=== PATIENT | male | born 1950 | race Hispanic/Latino ===

== ENCOUNTER 2016-09-22 07:31 | Inpatient (IN) | payer MEDICARE ==
[2016-09-18 15:23] VITALS: BMI 29.5
[2016-09-22] MEDS ORDERED: ePHEDrine 50 mg/ml Inj ONE (07:46)
[2016-09-22] MEDS ORDERED: Rocuronium 10 mg/ml (5 ml) ONE ×2 (07:46→09:53)
[2016-09-22] MEDS ORDERED: Succinylcholine 200 mg/10 ml Inj IV ONE (07:46)
[2016-09-22] MEDS ORDERED: Midazolam 2 MG/2 ML VIAL ONE (07:46)
[2016-09-22] MEDS ORDERED: Propofol 10 mg/ml Inj (20 ML) ONE (07:46)
[2016-09-22] MEDS ORDERED: Morphine 1 mg/ml preservative-free Inj(Duramorph) ONE (08:23)
[2016-09-22] MEDS ORDERED: Sodium Chloride 0.9% 20 ML IV ONE (08:23)
[2016-09-22 08:25] LABS: BLOOD UREA NITROGEN 26 mg/dl (9-20); CALCIUM 8.7 mg/dL (8.4-10.2); CARBON DIOXIDE 28 mmol/L (22-30); CHLORIDE 103 mmol/L (98-107); GFR AFRICAN-AMERICAN > 60; GLUCOSE,RANDOM 94 mg/dL (75-110); POTASSIUM 3.9 MMOL/L (3.6-5.0); SODIUM 141 mmol/l (132-148)
[2016-09-22] MEDS ORDERED: Thrombin Topical 5,000 IU Spray Kit ONE (08:25)
[2016-09-22] MEDS ORDERED: Absorbable Gelatin Sponge Size 100 ONE (08:25)
[2016-09-22] MEDS ORDERED: Bupivacaine 0.5% Inj(30mL) ONE (08:25)
[2016-09-22] MEDS ORDERED: Lactated Ringer's 1,000 ML IV ONE ×2 (09:14→11:00)
[2016-09-22] MEDS ORDERED: Sodium Chloride 0.9% Inj (10mL) IV ONE (11:03)
[2016-09-22] MEDS ORDERED: EPINEPHrine 1 mg/ml (1:1000) Inj IM ONE ×2 (11:07)
[2016-09-22] MEDS ORDERED: Neostigmine Methylsulfate 3mg/3ml Syringe IV ONE (11:13)
[2016-09-22] MEDS ORDERED: HYDROmorphone 0.5 mg/0.5 ml ISec IVP PRN (12:01)
--- NOTE | 2016-09-22 12:22 | PCM.SURG1 ---
Surgeon's Initial Post Op Note - Surgeon's Notes Surgeon: Abner Hernadez MD [place] Operator: Hakan Holbrook PA-C ; Charly Mullen MD Type of Anesthesia: General Endo Pre-Operative Diagnosis: Right Knee Severe OA Operative Findings: See op report Post-Operative Diagnosis: Same as pre-op dx Operation Performed: RTKR Specimen/Specimens Removed: Right knee bone and soft tissue Estimated Blood Loss: EBL {In ML}: 100 Date of Surgery/Procedure: 09/22/16 Time of Surgery/Procedure: 09:30
--- NOTE | 2016-09-22 12:24 | OP ---
PROCEDURE DATE: 09/22/2016 PROCEDURE DATE: 09/22/2016 ATTENDING SURGEON: Abner Hernadez MD TRANSPORTATION ENGINEER: Hakan Holbrook PA-C PREOPERATIVE DIAGNOSIS: Right knee osteoarthritis. POSTOPERATIVE DIAGNOSIS: Right knee osteoarthritis. PROCEDURE: Right total knee replacement. IMPLANTS SIZE: [employer] size 5 femur, size 5 tibial baseplate, 13 mm polyethylene insert, and a 38 m m polyethylene. ANESTHESIA TYPE: General. ESTIMATED BLOOD LOSS: 50 mL. COMPLICATIONS: None. HISTORY: The patient with prolonged history of right knee pain progressively getting worse despite e xtensive conservative management, which included activity modification, injections, anti-inflammatory modification and physical therapy. X-rays had revealed advanced arthritis. Patient was indicated fo r total knee replacement due to continued pain and limited mobility. I had a detailed discussion with the patient in the office explaining the nature of the surgery, alternatives of surgery, risks and b enefits, rehabilitation protocol and surgical markings. Risks of surgery include but not limited to continued pain, lack of motion, infection, vascular injury, DVT/PE, nerve injury including peroneal n erve dysfunction, reflex sympathetic dystrophy, compartment syndrome, unforeseen medical and/or anest hesia complications, limb loss, and even . The patient expressed an understanding of the risks and possible benefits of the procedure, and is also aware of the alternatives to surgery. PROCEDURE: On the day of the surgery, the patient was admitted to pre-operative holding area. A lat erality sheet was completed confirming the correct operative site. The correct surgical knee was mar ked in the holding area and informed consent was signed from the patient. Once again, I reviewed the risks and benefits of the surgery with the patient in detail. These risks include but are not limit ed to continued pain, lack of motion, infection, vascular injury, DVT/PE, nerve injury including anshul zachery nerve dysfunction, reflex sympathetic dystrophy, symptomatic hardware, need for further procedur e and surgeries, instability, iatrogenic fractures, compartment syndrome, unforeseen medical and/or a nesthesia complications, limb loss, and even . The patient expressed an understanding of the ri sks and possible benefits of the procedure, also aware of the alternatives to surgery and signed the informed consent. The patient was transported to the operating room and placed in the supine position, general anesthes ia was obtained Exam Under Anesthesia revealed 5 degrees of varus alignment. No effusion. Range of motion is from 0 to 120. A padded tourniquet was applied to patient's operative thigh and appropriate prophylactic antibiotics were given. The operative leg was draped and prepped in standard sterile manner. Timeout was compl eted, confirming patient's right knee to be the correct operative site. Using an Esmarch, the extrem ity was exsanguinated and tourniquet was inflated to 350 mmHg. The surgical incision markings were m haim using patella border, tibial tubercle, patella and quadriceps tendon. Using a 10 blade, a midlin e incision was made. Skin dissection was taken until the prepatellar fascia was identified and the c orners of the patellar tendon were marked for proper closure at the end of the procedure. Using a fr esh 10 blade, a medial parapatellar arthrotomy was performed. The knee was exposed in the standard m lulu. The deep MCL was elevated for exposure, medial and lateral menisci were removed, ACL and PCL were also transected. The tibia was subluxed anteriorly. Planned tibial cut was made with power saw, using extra-medullary guide, perpendicular to mechanical axis of the tibia. After the cut was made, the alignment was also checked and was found to be appropr iate. Next, the knee was placed into 90 degrees of flexion. A drill hole was made within the femora l notch anterior to PCL insertion for placement of intramedullary femoral chip. Intramedullary femora l chip was inserted within the femoral canal and planned distal femoral cut was made. After the cut, k nee was brought into full extension. Spacer blocks were used to check the extension balancing both in full extension and 30 degrees of flexion. It was found that a size 13 mm trial spacer block allowed full extension with symmetric varus and valgus balancing. Next we proceed with Patella resurfacing. Patella width was found to 23 mm. Using the free-hand techn ique the arthritic patella surface was resected. Patella was sized using the guide and it was noted t hat 38 mm Patella dome button would be appropriate for the patient. Next the size of femoral component was determined using the posterior referencing guide. It was note d that a size 5 femur would be appropriate for this patient without causing any significant notching. A 4 x 1 cutting block was placed and flexion gap balancing was checked. The flexion gap was found t o be symmetric to the extension gap. Anterior and posterior condyle, anterior and posterior chamfer c uts were made. Next, appropriate size box cut for femoral component was prepared using the guide. The femoral trial component was impacted onto the distal femur. Appropriate size tibial trial compone nt was also placed on the cut surface of the tibia. Using the drill and punch, keel for tibial implan t was prepared. Trial tibial tray was secured onto the tibia using pins. Different size trial polyeth ylene inserts were secured on to the trial tibial tray to critically assess the following parameters: Full range of motion, extension and flexion gap balancing, mid-flexion stability, anterior and poste rior drawer, and patellar tracking. All parameter were found to be satisfactory with 13 mm insert. All the trial components were removed. Implants were opened on the back table. Cement was mixed and w e proceed with cement fixation of the implants. Tibial tray, femoral component and patellar dome butt on were secured with cement. Polyethylene insert was secured onto the tibial tray using locking mecha nism. The knee was reduced and brought into full extension. Cement was allowed to harden until final component fixation. Knee was taken through the final range of motion for stability testing, and foun d to be satisfactory. 60 mL of custom cocktail mixture was injected into posterior capsule, MCL, LCL, quadriceps tendon, an d patellar tendon. Wound was copiously irrigated with sterile antibiotic solution using pulse lavage. Arthrotomy was closed using heavy suture and wound was closed in standard manner. Patient was extuba albina, transferred to stretcher and taken to the recovery room. Postoperative instructions were provide d, physical therapy consult was requested along with DVT prophylaxis and appropriate pain medications . During this procedure, I was assisted by Hakan Holbrook PA-C, who assisted in positioning the patien t on the operating room table as well as transferring the patient from the operating room table to [facility] recovery room stretcher. In addition, Hakan Holbrook PA-C assisted me during the actual operative procedure by positioning, protecting critical neurovascular structures, exposure of the joint, and p yareli positioning of the implants. The presence of Hakan Holbrook PA-C as my operative graduate assistant was medically necessary to ensure the utmost safety of the patient in the pre, intra-, and postoperative periods. Abner Hernaedz MD cc: [id number] TT: 09/22/2016 12:23:45 sn
[2016-09-22] MEDS ORDERED: Oxycodone/Acetaminophen 5/325 mg Tab PO PRN (12:28)
--- NOTE | 2016-09-22 13:32 | RAD ---
PROCEDURE: Right Knee Radiographs. HISTORY: S/P RTKR COMPARISON: 09/11/2016 FINDINGS: BONES: Status post total knee replacement. No osseous fracture. Postoperative soft tissue changes. JOINTS: As above JOINT EFFUSION: None. OTHER FINDINGS: None. IMPRESSION: Right total knee replacement. Otherwise unremarkable.
[2016-09-22] MEDS ORDERED: ceFAZolin 1 GM in Sodium Chloride 0.9% 100 ML IVPB ONE (17:30)
[2016-09-22] MEDS: oxyCODONE 20 mg ER Tab (oxyCONTIN) PO SCH (22:44)
[2016-09-23] MEDS ORDERED: ceFAZolin 1 GM in Sodium Chloride 0.9% 100 ML IVPB ONE (01:00)
[2016-09-23 07:07] LABS: BASO % 0.4 % (0.0-2.0); EOS # 0.2 K/uL (0.0-0.7); EOS % 1.9 % (0.0-4.0); HEMATOCRIT 37.2 % (35.0-51.0); LYMPH # 1.2 K/uL (1.0-4.3); LYMPH % 10.5 % (20.0-40.0); MEAN CELL VOLUME 86.3 fl (80.0-94.0); MEAN CORPUSCULAR HEMOGLOBIN 28.2 pg (27.0-31.0); MEAN CORPUSCULAR HGB CONC 32.6 g/dL (33.0-37.0); MEAN PLATELET VOLUME 10.7 fl (7.2-11.7); MONO # 1.2 K/uL (0.0-0.8); MONO % 10.1 % (0.0-10.0); NEUT # 8.8 K/uL (1.8-7.0); NEUT % 77.1 % (50.0-75.0); RED CELL DISTRIBUTION WIDTH 16.2 % (11.5-14.5); WHITE BLOOD COUNT 11.4 K/uL (4.8-10.8)
[2016-09-23 07:20] LABS: BLOOD UREA NITROGEN 18 mg/dl (9-20); CALCIUM 8.2 mg/dL (8.4-10.2); CARBON DIOXIDE 29 mmol/L (22-30); CHLORIDE 102 mmol/L (98-107); GFR AFRICAN-AMERICAN > 60; GLUCOSE,RANDOM 111 mg/dL (75-110); POTASSIUM 4.3 MMOL/L (3.6-5.0); SODIUM 138 mmol/l (132-148)
--- NOTE | 2016-09-23 08:49 | CP.PCM.PN ---
Subjective - Date & Time of Evaluation Date of Evaluation: 09/23/16 Time of Evaluation: 08:15 - Subjective Subjective: S/P RTKR POD#1 Pt seen and examined at bedside, comfortable in bed Pt c/o mild right knee pain Pt denies SOB, chest pain, N/V/D, numbness/tingling RLE Objective - Vital Signs/Intake and Output Vital Signs (last 24 hours): Temp Pulse Resp BP Pulse Ox 98.1 F 65 18 107/64 94 L 09/23/16 08:05 09/23/16 08:05 09/23/16 08:05 09/23/16 08:05 09/23/16 08:05 - Medications Medications: Current Medications Aspirin (Aspirin) 325 mg PO BID [facility] Celecoxib (Celebrex) 200 mg PO Q12 [facility] Last Admin: 09/22/16 22:46 Dose: 200 mg Docusate Sodium (Colace) 100 mg PO BID [facility] Last Admin: 09/22/16 18:17 Dose: 100 mg Famotidine (Pepcid) 20 mg PO BID [facility] Last Admin: 09/22/16 18:18 Dose: 20 mg Ketorolac Tromethamine (Toradol) 15 mg IM Q8 [facility] Stop: 09/24/16 17:00 Last Admin: 09/23/16 00:27 Dose: Not Given Ondansetron HCl (Zofran Odt) 4 mg PO Q8H PRN PRN Reason: Nausea/Vomiting Oxycodone HCl (Oxycontin Extended Release Tab) 20 mg PO Q12 [facility] Last Admin: 09/22/16 22:44 Dose: 20 mg Oxycodone/Acetaminophen (Percocet 5/325 Mg Tab) 1 tab PO Q4 PRN PRN Reason: Pain, moderate (4-7) Stop: 09/25/16 12:29 - Labs Labs: 09/23/16 05:20 09/23/16 06:53 - Constitutional Appears: Well, No Acute Distress - Respiratory Exam Respiratory Exam: Clear to Ausculation Bilateral, NORMAL BREATHING PATTERN - Cardiovascular Exam Cardiovascular Exam: REGULAR RHYTHM, RRR - Extremities Exam Additional comments: RLE: Knee dressing C/D/I Calves soft and nontender b/l N/V intact Normal ROm at ankle DP and PT pulses wnl Assessment and Plan - Assessment and Plan (Free Text) Assessment: S/P RTKR POD #1 Pain Control DVT ppx- aspirin 325mg bid SCD to b/l LE Incentive Spirometer F/U daily labs PT/OT WBAt RLE Discussed with Dr. Hernadez
[2016-09-23] MEDS: oxyCODONE 20 mg ER Tab (oxyCONTIN) PO SCH ×2 (09:04→21:57)
[2016-09-23] MEDS ORDERED: Tiotropium 18 mcg Cap For Inhalation IH SCH (09:15)
--- NOTE | 2016-09-23 11:11 | CP.PCM.HP ---
History of Present Illness - History of Present Illness History of Present Illness: 65yo M with PMHx BPH, COPD admitted for s/p right TKR. right TKR performed with no complications. Pain well controlled. no complaints at this time. PMHx: as above SHx: knee arthroscopies Social hx: 4ppd x10 year, denies EtOH/drugs Allergies: NKDA FHx: NC Present on Admission - Present on Admission Any Indicators Present on Admission: No Review of Systems - Constitutional Constitutional: absent: Chills, Fever - Cardiovascular Cardiovascular: absent: Chest Pain - Respiratory Respiratory: absent: Dyspnea - Gastrointestinal Gastrointestinal: absent: Abdominal Pain, Diarrhea, Nausea, Vomiting - Genitourinary Genitourinary: absent: Dysuria, Hematuria - Musculoskeletal Musculoskeletal: Stiffness (right knee). absent: Back Pain - Neurological Neurological: absent: Headaches Past Patient History - Past Medical History & Family History Past Medical History?: Yes - Past Social History Smoking Status: Never Smoked - CARDIAC Hx Cardiac Disorders: No - PULMONARY Hx Respiratory Disorders: Yes Hx Asthma: Yes ( CHILD) Hx Chronic Obstructive Pulmonary Disease (COPD): Yes - NEUROLOGICAL Hx Neurological Disorder: No - HEENT Hx HEENT Problems: No - RENAL Hx Chronic Kidney Disease: No - ENDOCRINE/METABOLIC Hx Endocrine Disorders: No - HEMATOLOGICAL/ONCOLOGICAL Hx Blood Disorders: No - INTEGUMENTARY Hx Dermatological Problems: No - MUSCULOSKELETAL/RHEUMATOLOGICAL Hx Musculoskeletal Disorders: Yes Hx Arthritis: Yes (KNEES AND LEGS) Hx Falls: No - GASTROINTESTINAL Hx Gastrointestinal Disorders: No Other/Comment: HEARTBURN - GENITOURINARY/GYNECOLOGICAL Hx Genitourinary Disorders: Yes Hx Prostate Problems: Yes - PSYCHIATRIC Hx Emotional Abuse: No Hx Physical Abuse: No - SURGICAL HISTORY Hx Surgeries: Yes Hx Arthroscopy: Yes (LEFT KNEE) - ANESTHESIA Hx Anesthesia: Yes Hx Anesthesia Reactions: No Hx Malignant Hyperthermia: No Has any member of the family had a problem w/ anesthesia?: No Meds Allergies/Adverse Reactions: Allergies Allergy/AdvReac Type Severity Reaction Status Date / Time No Known Allergies Allergy Verified 09/18/16 15:23 Physical Exam - Constitutional Appears: Non-toxic, No Acute Distress - Head Exam Head Exam: NORMAL INSPECTION - Eye Exam Eye Exam: Normal appearance - ENT Exam ENT Exam: Mucous Membranes Moist - Neck Exam Neck exam: Positive for: Normal Inspection - Respiratory Exam Respiratory Exam: Clear to Auscultation Bilateral - Cardiovascular Exam Cardiovascular Exam: REGULAR RHYTHM - GI/Abdominal Exam GI & Abdominal Exam: Soft - Extremities Exam Extremities exam: Positive for: normal inspection. Negative for: pedal edema Additional comments: sensation/motor grossly intact right lower extremity right knee asmita wrapped - Neurological Exam Neurological exam: Alert, Oriented x3 - Skin Skin Exam: Dry, Warm Results - Vital Signs Recent Vital Signs: Last Vital Signs Temp 98.1 F 09/23/16 08:05 Pulse 65 09/23/16 08:05 Resp 18 09/23/16 08:05 BP 107/64 09/23/16 08:05 Pulse Ox 94 L 09/23/16 08:05 - Labs Result Diagrams: 09/23/16 05:20 09/23/16 06:53 Labs: Laboratory Results - last 24 hr 09/23/16 09/23/16 05:20 06:53 WBC 11.4 H RBC 4.31 L Hgb 12.1 Hct 37.2 MCV 86.3 MCH 28.2 MCHC 32.6 L RDW 16.2 H Plt Count 121 L MPV 10.7 Neut % (Auto) 77.1 H Lymph % (Auto) 10.5 L [place] % (Auto) 10.1 H Eos % (Auto) 1.9 Baso % (Auto) 0.4 Neut # 8.8 H Lymph # 1.2 [place] # 1.2 H Eos # 0.2 Baso # 0.0 Sodium 138 Potassium 4.3 Chloride 102 Carbon Dioxide 29 Anion Gap 12 BUN 18 Creatinine 0.8 Est GFR ( Amer) > 60 Est GFR (Non-Af Amer) > 60 Random Glucose 111 H Calcium 8.2 L Assessment & Plan - Assessment and Plan (Free Text) Assessment: 65yo M with PMHx BPH, COPD admitted for s/p right TKR. POD#1 s/p RTKR -ortho on board, appreciate input -WBAT, OOB -incentive spiromety -pain control BPH -c/w home meds COPD -c/w home meds DVT ppx -ASA Decision To Admit - Pt Status Changed To: Hospital Disposition Of: Inpatient - Admit Certification Admit to Inpatient:: After my assessment, the patient will require hospitalization for at least two midnights. This is because of the severity of symptoms shown, intensity of services needed, and/or the medical risk in this patient being treated as an outpatient. - . Bed Request Type: Med/Surg Admitting Physician: Cesar Tam
[2016-09-23] MEDS: Fluticasone-Salmeterol 500-50mcg Diskus IH SCH ×2 (17:00→20:53)
[2016-09-23] MEDS: Tiotropium 18 mcg Cap For Inhalation INH SCH (17:04)
[2016-09-24 07:14] LABS: BASO % 0.2 % (0.0-2.0); EOS # 0.4 K/uL (0.0-0.7); EOS % 3.5 % (0.0-4.0); HEMATOCRIT 35.8 % (35.0-51.0); LYMPH # 1.1 K/uL (1.0-4.3); LYMPH % 9.3 % (20.0-40.0); MEAN CELL VOLUME 85.7 fl (80.0-94.0); MEAN CORPUSCULAR HEMOGLOBIN 28.5 pg (27.0-31.0); MEAN CORPUSCULAR HGB CONC 33.3 g/dL (33.0-37.0); MONO # 1.2 K/uL (0.0-0.8); MONO % 9.9 % (0.0-10.0); NEUT # 9.2 K/uL (1.8-7.0); NEUT % 77.1 % (50.0-75.0); PLATELET COUNT 114 K/uL (130-400); RED CELL DISTRIBUTION WIDTH 16.1 % (11.5-14.5); WHITE BLOOD COUNT 11.9 K/uL (4.8-10.8)
[2016-09-24 07:34] LABS: BLOOD UREA NITROGEN 18 mg/dl (9-20); CALCIUM 8.6 mg/dL (8.4-10.2); CARBON DIOXIDE 29 mmol/L (22-30); CHLORIDE 102 mmol/L (98-107); GFR AFRICAN-AMERICAN > 60; GLUCOSE,RANDOM 122 mg/dL (75-110); POTASSIUM 4.1 MMOL/L (3.6-5.0); SODIUM 140 mmol/l (132-148)
[2016-09-24] MEDS: Fluticasone-Salmeterol 500-50mcg Diskus IH SCH (09:46)
[2016-09-24] MEDS: oxyCODONE 20 mg ER Tab (oxyCONTIN) PO SCH (09:47)
[2016-09-24 09:49] LABS: EOSINOPHIL 1 % (0-7); NEUTROPHIL 75 % (42-75); REACTIVE LYMPHOCYTES 1 % (0-0); TOTAL CELLS COUNTED 100
[2016-09-24] MEDS: Tiotropium 18 mcg Cap For Inhalation INH SCH (09:49)
[2016-09-24 09:54] LABS: LARGE PLATELETS PRESENT
--- NOTE | 2016-09-24 11:45 | CP.PCM.PN ---
Subjective - Date & Time of Evaluation Date of Evaluation: 09/24/16 Time of Evaluation: 10:40 - Subjective Subjective: 65 year old male patient 2 days s/p right total knee replacement was seen at bedside this morning. Patient was resting well in bedside chair and denies of acute overnight distress. Dressing to right knee appears clean, dry and intact. Patient states that he is able to ambulate with tolerable amount of pain, being assisted by physical therapist. Patient denies of any N/V/F/C or SOB today. Objective - Vital Signs/Intake and Output Vital Signs (last 24 hours): Temp Pulse Resp BP Pulse Ox 97.8 F 63 18 119/77 92 L 09/24/16 08:47 09/24/16 08:47 09/24/16 08:47 09/24/16 08:47 09/24/16 08:47 - Medications Medications: Current Medications Aspirin (Aspirin) 325 mg PO BID [facility] Last Admin: 09/24/16 09:55 Dose: 325 mg Celecoxib (Celebrex) 200 mg PO Q12 [facility] Last Admin: 09/24/16 09:47 Dose: 200 mg Docusate Sodium (Colace) 100 mg PO BID [facility] Last Admin: 09/24/16 09:48 Dose: 100 mg Famotidine (Pepcid) 20 mg PO BID [facility] Last Admin: 09/24/16 09:55 Dose: 20 mg Finasteride (Proscar) 5 mg PO QPM [facility] Last Admin: 09/23/16 17:04 Dose: 5 mg Ketorolac Tromethamine (Toradol) 15 mg IVP Q8 PRN PRN Reason: Pain, moderate (4-7) Stop: 09/24/16 17:00 Ondansetron HCl (Zofran Odt) 4 mg PO Q8H PRN PRN Reason: Nausea/Vomiting Oxycodone HCl (Oxycontin Extended Release Tab) 20 mg PO Q12 [facility] Last Admin: 09/24/16 09:47 Dose: 20 mg Oxycodone/Acetaminophen (Percocet 5/325 Mg Tab) 1 tab PO Q4 PRN PRN Reason: Pain, moderate (4-7) Stop: 09/25/16 12:29 Last Admin: 09/23/16 14:22 Dose: 1 tab Fluticasone/Salmeterol (Advair Diskus 500/50) 2 puff IH BID@0900,2100 [facility] Last Admin: 09/24/16 09:46 Dose: 2 puff Tamsulosin HCl (Flomax) 0.4 mg PO QPM [facility] Last Admin: 09/23/16 18:19 Dose: 0.4 mg Tiotropium [place] (Spiriva) 18 mcg INH DAILY [facility] Last Admin: 09/24/16 09:49 Dose: 18 mcg - Labs Labs: 09/24/16 06:50 09/24/16 06:50 - Constitutional Appears: Well, Non-toxic, No Acute Distress - Extremities Exam Additional comments: RLE exam: Knee dressing C/D/I Calves soft and nontender b/l N/V intact Normal ROM at ankle DP and PT pulses palpable 2/4, BROOMMAKER <3 sec to all digits - Neurological Exam Neurological Exam: Alert, Awake, Oriented x3 - Psychiatric Exam Psychiatric exam: Normal Affect, Normal Mood - Skin Skin Exam: Normal Color, Warm Assessment and Plan - Assessment and Plan (Free Text) Assessment: S/P RTKR POD #2 Plan: Patient was seen, evaluated at bedside this AM Labs and vitals reviewed Continue physical therapy Weight bearing as tolerated to right lower extremity with walker DVT ppx- aspirin 325mg bid SCD to b/l LE Incentive Spirometer Discussed with Dr. Hernadez
--- NOTE | 2016-09-24 12:01 | CP.PCM.DIS ---
Provider - Provider Date of Admission: 09/22/16 12:46 Attending physician: Cesar Tam MD Primary care physician: Scout Burger MD Time Spent in preparation of Discharge (in minutes): 20 Diagnosis - Discharge Diagnosis (1) Status post right knee replacement Status: Acute Hospital Course - Lab Results Lab Results: Most Recent Lab Values WBC 11.9 K/uL (4.8-10.8) H 09/24/16 06:50 RBC 4.18 Mil/uL (4.40-5.90) L 09/24/16 06:50 Hgb 11.9 g/dL (12.0-18.0) L 09/24/16 06:50 Hct 35.8 % (35.0-51.0) 09/24/16 06:50 MCV 85.7 fl (80.0-94.0) 09/24/16 06:50 MCH 28.5 pg (27.0-31.0) 09/24/16 06:50 MCHC 33.3 g/dL (33.0-37.0) 09/24/16 06:50 RDW 16.1 % (11.5-14.5) H 09/24/16 06:50 Plt Count 114 K/uL (130-400) L 09/24/16 06:50 MPV 10.0 fl (7.2-11.7) 09/24/16 06:50 Neut % (Auto) 77.1 % (50.0-75.0) H 09/24/16 06:50 Lymph % (Auto) 9.3 % (20.0-40.0) L 09/24/16 06:50 [place] % (Auto) 9.9 % (0.0-10.0) 09/24/16 06:50 Eos % (Auto) 3.5 % (0.0-4.0) 09/24/16 06:50 Baso % (Auto) 0.2 % (0.0-2.0) 09/24/16 06:50 Neut # 9.2 K/uL (1.8-7.0) H 09/24/16 06:50 Lymph # 1.1 K/uL (1.0-4.3) 09/24/16 06:50 [place] # 1.2 K/uL (0.0-0.8) H 09/24/16 06:50 Eos # 0.4 K/uL (0.0-0.7) 09/24/16 06:50 Baso # 0.0 K/uL (0.0-0.2) 09/24/16 06:50 Neutrophils % (Manual) 75 % (42-75) 09/24/16 06:50 Band Neutrophils % 2 % (0-2) 09/24/16 06:50 Lymphocytes % (Manual) 10 % (20-50) L 09/24/16 06:50 Reactive Lymphs % 1 % (0-0) H 09/24/16 06:50 Monocytes % (Manual) 11 % (0-10) H 09/24/16 06:50 Eosinophils % (Manual) 1 % (0-7) 09/24/16 06:50 Platelet Estimate Slightly decreased (NORMAL) L 09/24/16 06:50 Large Platelets Present 09/24/16 06:50 Poikilocytosis (manual Slight 09/24/16 06:50 Anisocytosis (manual) Slight 09/24/16 06:50 Tear Drop Cells Slight 09/24/16 06:50 Sodium 140 mmol/l (132-148) 09/24/16 06:50 Potassium 4.1 MMOL/L (3.6-5.0) 09/24/16 06:50 Chloride 102 mmol/L (98-107) 09/24/16 06:50 Carbon Dioxide 29 mmol/L (22-30) 09/24/16 06:50 Anion Gap 14 (10-20) 09/24/16 06:50 BUN 18 mg/dl (9-20) 09/24/16 06:50 Creatinine 0.9 mg/dL (0.8-1.5) 09/24/16 06:50 Est GFR ( Amer) > 60 09/24/16 06:50 Est GFR (Non-Af Amer) > 60 09/24/16 06:50 Random Glucose 122 mg/dL (75-110) H 09/24/16 06:50 Calcium 8.6 mg/dL (8.4-10.2) 09/24/16 06:50 Blood Type O NEGATIVE 09/22/16 07:45 Blood Type Confirm O NEGATIVE 09/22/16 08:11 Antibody Screen Negative 09/22/16 07:45 BBK History Checked No verified bt 09/22/16 07:45 - Hospital Course Hospital Course: 65yo M with PMHx BPH, COPD admitted for s/p right TKR. right TKR performed with no complications. Pain well controlled. Pt able to tolerate PO and walking WBAT and full ROM. d/c POD#2 s/p right TKR to TCU for continued rehab. Discharge Exam - Head Exam Head Exam: NORMAL INSPECTION - Eye Exam Eye Exam: Normal appearance - ENT Exam ENT Exam: Mucous Membranes Moist - Neck Exam Neck exam: Normal Inspection - Respiratory Exam Respiratory Exam: NORMAL BREATHING PATTERN - Cardiovascular Exam Cardiovascular Exam: REGULAR RHYTHM - GI/Abdominal Exam GI & Abdominal Exam: Soft - Extremities Exam Extremities exam: full ROM, pedal edema (trace), pedal pulses present Additional comments: right knee dressing C/I - Back Exam Back exam: NORMAL INSPECTION - Neurological Exam Neurological exam: Alert, Oriented x3 - Skin Skin Exam: Dry, Warm Discharge Plan - Follow Up Plan Condition: GOOD Disposition: REHAB FACILITY/REHAB UNIT Instructions: Knee Replacement (DC) Referrals: Scout Burger [Primary Care Provider] -
[2016-09-24 16:14] VITALS: BP 130/72; PULSE 66; RESP 20; TEMP 98.4; O2SAT 96
== END 2016-09-24 18:30 | DRG 470 ==
LOC: H.OPSURG 07:31 → H.MEDSURG1 12:46
PROVIDERS: ADMIT Family Medicine; ATTEND Family Medicine
PROC: 0SRC0J9 Replacement of Right Knee Joint with Synthetic Substitute, Cemented, Open Approach (ICD-10-PCS; principal; 2016-09-22 10:30)
DX: M17.11 Unilateral primary osteoarthritis, right knee (principal); J44.9 Chronic obstructive pulmonary disease, unspecified; N40.0 Benign prostatic hyperplasia without lower urinary tract symptoms

== ENCOUNTER 2016-09-24 15:00 | Inpatient (IN) | payer MEDICARE ==
[2016-09-24 18:24] VITALS: BMI 32.3
[2016-09-24] MEDS: oxyCODONE 20 mg ER Tab (oxyCONTIN) PO SCH (21:43)
[2016-09-24] MEDS: Oxycodone/Acetaminophen 5/325 mg Tab PO PRN (23:06)
[2016-09-25] MEDS: Oxycodone/Acetaminophen 5/325 mg Tab PO PRN ×2 (07:18→17:40)
--- NOTE | 2016-09-25 08:45 | CP.PCM.PN ---
Subjective - Date & Time of Evaluation Date of Evaluation: 09/25/16 Time of Evaluation: 08:40 - Subjective Subjective: S/P RTKR POD#3 Pt seen amd examined at bedside in TCU, pt comfortable, NAD Pt c/o mild Rt knee pain, currently well controlled Pt denies SOB, chest pain, N/V/D, numbness/tingling RLE Pt had BM yesterday Objective - Vital Signs/Intake and Output Vital Signs (last 24 hours): Temp Pulse Resp BP Pulse Ox 97.2 F L 72 20 125/68 09/25/16 07:56 09/25/16 07:56 09/25/16 07:56 09/25/16 07:56 - Medications Medications: Current Medications Aspirin (Aspirin) 325 mg PO BID [facility] Celecoxib (Celebrex) 200 mg PO DAILY PRN PRN Reason: MODERATE 4-7 Docusate Sodium (Colace) 100 mg PO BID [facility] Finasteride (Proscar) 5 mg PO QPM [facility] (Magnesium Oxide [Mai]) 500 mg PO DAILY [facility] Ondansetron HCl (Zofran Odt) 4 mg PO Q8H PRN PRN Reason: Nausea/Vomiting Oxycodone HCl (Oxycontin Extended Release Tab) 20 mg PO Q12 [facility] Last Admin: 09/24/16 21:43 Dose: 20 mg Oxycodone/Acetaminophen (Percocet 5/325 Mg Tab) 1 tab PO Q4 PRN PRN Reason: Pain, moderate (4-7) Stop: 09/27/16 20:36 Last Admin: 09/25/16 07:18 Dose: 1 tab Pantoprazole Sodium (Protonix Ec Tab) 40 mg PO DAILY [facility] Fluticasone/Salmeterol (Advair Diskus 500/50) 1 puff IH BID [facility] Tamsulosin HCl (Flomax) 0.4 mg PO QPM [facility] Tiotropium [place] (Spiriva) 18 mcg INH DAILY [facility] - Constitutional Appears: Well, No Acute Distress - Respiratory Exam Respiratory Exam: Clear to Ausculation Bilateral, NORMAL BREATHING PATTERN - Cardiovascular Exam Cardiovascular Exam: REGULAR RHYTHM, RRR - Extremities Exam Additional comments: RLE: Knee wound C/D/I Calves soft and nontender b/l N/V intact distally DP and PT pulses wnl Assessment and Plan - Assessment and Plan (Free Text) Assessment: S/P RTKR POD#3 Pain Control DVT ppx- continue aspirin 325mg PO bid PT/OT - WBAT RLE, continue CPM as per post op RTKR protocol Continue current management Discussed with Dr. Hernadez
[2016-09-25] MEDS: Fluticasone-Salmeterol 500-50mcg Diskus IH SCH ×2 (08:55→17:36)
[2016-09-25] MEDS: Tiotropium 18 mcg Cap For Inhalation INH SCH (08:56)
[2016-09-25] MEDS: Pantoprazole 40 mg EC Tab PO SCH (08:56)
[2016-09-25] MEDS: oxyCODONE 20 mg ER Tab (oxyCONTIN) PO SCH ×2 (08:57→21:00)
[2016-09-25] MEDS ORDERED: Alum-Mag Hydrox-Simethicone Susp (30 mL) PO ONE (10:41)
[2016-09-26] MEDS: Oxycodone/Acetaminophen 5/325 mg Tab PO PRN ×5 (01:11→23:53)
[2016-09-26] MEDS: oxyCODONE 20 mg ER Tab (oxyCONTIN) PO SCH ×2 (08:47→20:57)
[2016-09-26] MEDS: Fluticasone-Salmeterol 500-50mcg Diskus IH SCH ×2 (08:49→16:37)
[2016-09-26] MEDS: Tiotropium 18 mcg Cap For Inhalation INH SCH (08:50)
[2016-09-26] MEDS: Pantoprazole 40 mg EC Tab PO SCH (08:54)
--- NOTE | 2016-09-26 13:49 | CP.PCM.CON ---
History of Present Illness - History of Present Illness History of Present Illness: Dr Elias PMR consultation on Brian Crabtree, born 1950, who has been admitted to [facility] following a right TKR by Dr Hernadez. Already with nice post op ROM. Has had bowel movement. Left knee is also in need of surgery which will come next. He works out everyday and this likely has helped his post op recovery as well Review of Systems - Constitutional Constitutional: absent: Anorexia, Chills - EENT Eyes: absent: Blurred Vision Ears: absent: Decreased Hearing Nose/Mouth/Throat: absent: Nasal Congestion - Cardiovascular Cardiovascular: absent: Chest Pain - Respiratory Respiratory: absent: Dyspnea - Gastrointestinal Gastrointestinal: absent: Abdominal Pain, Constipation - Musculoskeletal Musculoskeletal: Arthralgias (left knee) - Integumentary Integumentary: absent: Bleeding Lesions Past Patient History - Past Medical History & Family History Past Medical History?: Yes - Past Social History Smoking Status: Former Smoker Home Situation {Lives}: Alone (elevator) - CARDIAC Hx Cardiac Disorders: No - PULMONARY Hx Respiratory Disorders: Yes Hx Asthma: Yes ( CHILD) Hx Chronic Obstructive Pulmonary Disease (COPD): Yes - NEUROLOGICAL Hx Neurological Disorder: No - HEENT Hx HEENT Problems: No - RENAL Hx Chronic Kidney Disease: No - ENDOCRINE/METABOLIC Hx Endocrine Disorders: No - HEMATOLOGICAL/ONCOLOGICAL Hx Blood Disorders: No - INTEGUMENTARY Hx Dermatological Problems: No - MUSCULOSKELETAL/RHEUMATOLOGICAL Hx Musculoskeletal Disorders: Yes Hx Arthritis: Yes (KNEES AND LEGS) Hx Falls: No - GASTROINTESTINAL Hx Gastrointestinal Disorders: No Other/Comment: HEARTBURN - GENITOURINARY/GYNECOLOGICAL Hx Genitourinary Disorders: Yes Hx Prostate Problems: Yes - PSYCHIATRIC Hx Emotional Abuse: No Hx Physical Abuse: No Hx Substance Use: No - SURGICAL HISTORY Hx Surgeries: Yes Hx Arthroscopy: Yes (LEFT KNEE) - ANESTHESIA Hx Anesthesia: Yes Hx Anesthesia Reactions: No Hx Malignant Hyperthermia: No Meds Allergies/Adverse Reactions: Allergies Allergy/AdvReac Type Severity Reaction Status Date / Time No Known Allergies Allergy Verified 09/24/16 18:23 - Medications Medications: Current Medications Aspirin (Aspirin) 325 mg PO BID [facility] Last Admin: 09/26/16 08:55 Dose: 325 mg Celecoxib (Celebrex) 200 mg PO DAILY PRN PRN Reason: MODERATE 4-7 Last Admin: 09/26/16 08:49 Dose: 200 mg Docusate Sodium (Colace) 100 mg PO BID [facility] Last Admin: 09/26/16 08:50 Dose: 100 mg Finasteride (Proscar) 5 mg PO QPM [facility] Last Admin: 09/25/16 17:36 Dose: 5 mg Home Med (Magnesium Oxide [Mai]) 500 mg PO DAILY [facility] Ondansetron HCl (Zofran Odt) 4 mg PO Q8H PRN PRN Reason: Nausea/Vomiting Last Admin: 09/26/16 08:50 Dose: 4 mg Oxycodone HCl (Oxycontin Extended Release Tab) 20 mg PO Q12 [facility] Last Admin: 09/26/16 08:47 Dose: 20 mg Oxycodone/Acetaminophen (Percocet 5/325 Mg Tab) 1 tab PO Q4 PRN PRN Reason: Pain, moderate (4-7) Stop: 09/27/16 20:36 Last Admin: 09/26/16 12:41 Dose: 1 tab Pantoprazole Sodium (Protonix Ec Tab) 40 mg PO DAILY [facility] Last Admin: 09/26/16 08:54 Dose: 40 mg Fluticasone/Salmeterol (Advair Diskus 500/50) 1 puff IH BID [facility] Last Admin: 09/26/16 08:49 Dose: 1 puff Tamsulosin HCl (Flomax) 0.4 mg PO QPM [facility] Last Admin: 09/25/16 17:36 Dose: 0.4 mg Tiotropium [place] (Spiriva) 18 mcg INH DAILY [facility] Last Admin: 09/26/16 08:50 Dose: 18 mcg Physical Exam - Constitutional Appears: Well, Non-toxic, No Acute Distress - Head Exam Head Exam: ATRAUMATIC, NORMAL INSPECTION, NORMOCEPHALIC - Eye Exam Eye Exam: EOMI - ENT Exam ENT Exam: Mucous Membranes Moist - Respiratory Exam Respiratory Exam: NORMAL BREATHING PATTERN - Cardiovascular Exam Cardiovascular Exam: REGULAR RHYTHM - GI/Abdominal Exam GI & Abdominal Exam: absent: Distended - Extremities Exam Extremities exam: Negative for: calf tenderness, normal inspection (has a right knee incision line with flaca, CDI, some mild erythema) - Neurological Exam Neurological exam: Alert, CN II-XII Intact, Oriented x3 - Psychiatric Exam Psychiatric exam: Normal Affect, Normal Mood - Skin Skin Exam: Dry Results - Vital Signs Recent Vital Signs: Last Vital Signs Temp 97.7 F 09/26/16 08:22 Pulse 71 09/26/16 08:22 Resp 20 09/26/16 08:22 BP 117/65 09/26/16 08:22 Pulse Ox 100 09/26/16 08:22 Assessment & Plan - Assessment and Plan (Free Text) Assessment: Patient is s/p right TKR pain is well controlled I will get ice on knee PT/OT to continue to help increase functional independence Vascular: no evidence of DVT on post op prophylaxis GI: No evidence of constipation or diarrhea Patient continues to be an excellent TCU rehabilitation candidate and will have continued focused PT, OT and recreational therapy to help facilitate a safe and appropriate d/c plan
[2016-09-27] MEDS: Oxycodone/Acetaminophen 5/325 mg Tab PO PRN ×3 (07:38→23:26)
[2016-09-27] MEDS: Fluticasone-Salmeterol 500-50mcg Diskus IH SCH ×2 (10:04→17:21)
[2016-09-27] MEDS: Tiotropium 18 mcg Cap For Inhalation INH SCH (10:06)
[2016-09-27] MEDS: Pantoprazole 40 mg EC Tab PO SCH (10:07)
[2016-09-27] MEDS: oxyCODONE 20 mg ER Tab (oxyCONTIN) PO SCH ×2 (10:15→20:04)
[2016-09-27] MEDS: Magnesium Oxide 400 mg Tab UD PO SCH ×3 (11:02→11:14)
[2016-09-28] MEDS: Oxycodone/Acetaminophen 5/325 mg Tab PO PRN ×4 (04:27→21:38)
[2016-09-28] MEDS: oxyCODONE 20 mg ER Tab (oxyCONTIN) PO SCH ×2 (09:04→21:00)
[2016-09-28] MEDS: Fluticasone-Salmeterol 500-50mcg Diskus IH SCH ×2 (09:06→17:29)
[2016-09-28] MEDS: Magnesium Oxide 400 mg Tab UD PO SCH (09:11)
[2016-09-28] MEDS: Pantoprazole 40 mg EC Tab PO SCH (09:11)
[2016-09-28] MEDS: Tiotropium 18 mcg Cap For Inhalation INH SCH (09:12)
--- NOTE | 2016-09-28 10:35 | CP.PCM.HP ---
History of Present Illness - History of Present Illness History of Present Illness: This is a 65 y/o male admitted to TCU for Phys therapy and rehab after a TKR right. He had some difficulty with balance and gait on evaluation post op. Has a hx of BPH and COPD. Present on Admission - Present on Admission Any Indicators Present on Admission: No History of DVT/PE: No History of Uncontrolled Diabetes: No Urinary Catheter: No Decubitus Ulcer Present: No Review of Systems - Musculoskeletal Musculoskeletal: Abnormal Gait, Arthralgias Past Patient History - Past Medical History & Family History Past Medical History?: Yes - Past Social History Smoking Status: Former Smoker Home Situation {Lives}: Alone (elevator) - CARDIAC Hx Cardiac Disorders: No - PULMONARY Hx Respiratory Disorders: Yes Hx Asthma: Yes ( CHILD) Hx Chronic Obstructive Pulmonary Disease (COPD): Yes - NEUROLOGICAL Hx Neurological Disorder: No - HEENT Hx HEENT Problems: No - RENAL Hx Chronic Kidney Disease: No - ENDOCRINE/METABOLIC Hx Endocrine Disorders: No - HEMATOLOGICAL/ONCOLOGICAL Hx Blood Disorders: No - INTEGUMENTARY Hx Dermatological Problems: No - MUSCULOSKELETAL/RHEUMATOLOGICAL Hx Musculoskeletal Disorders: Yes Hx Arthritis: Yes (KNEES AND LEGS) Hx Falls: No - GASTROINTESTINAL Hx Gastrointestinal Disorders: No Other/Comment: HEARTBURN - GENITOURINARY/GYNECOLOGICAL Hx Genitourinary Disorders: Yes Hx Prostate Problems: Yes - PSYCHIATRIC Hx Emotional Abuse: No Hx Physical Abuse: No Hx Substance Use: No - SURGICAL HISTORY Hx Surgeries: Yes Hx Arthroscopy: Yes (LEFT KNEE) - ANESTHESIA Hx Anesthesia: Yes Hx Anesthesia Reactions: No Hx Malignant Hyperthermia: No Meds Allergies/Adverse Reactions: Allergies Allergy/AdvReac Type Severity Reaction Status Date / Time No Known Allergies Allergy Verified 09/24/16 18:23 Physical Exam - Head Exam Head Exam: NORMAL INSPECTION - Eye Exam Eye Exam: Normal appearance - ENT Exam ENT Exam: Mucous Membranes Moist - Respiratory Exam Respiratory Exam: Clear to Auscultation Bilateral - Cardiovascular Exam Cardiovascular Exam: REGULAR RHYTHM - Neurological Exam Neurological exam: CN II-XII Intact - Psychiatric Exam Psychiatric exam: Normal Mood Results - Vital Signs Recent Vital Signs: Last Vital Signs Temp 97.3 F L 09/28/16 08:05 Pulse 68 09/28/16 08:05 Resp 20 09/28/16 08:05 BP 132/56 L 09/28/16 08:05 Pulse Ox 94 L 09/28/16 08:05 Assessment & Plan (1) Gait difficulty Status: Acute (2) Status post right knee replacement Status: Acute (3) Benign prostate hyperplasia Status: Acute - Assessment and Plan (Free Text) Plan: start PT cont meds Cont tx Cont PT. pain meds.
--- NOTE | 2016-09-28 10:38 | CP.PCM.PN ---
Subjective - Date & Time of Evaluation Date of Evaluation: 09/28/16 Time of Evaluation: 10:38 - Subjective Subjective: patient Objective - Vital Signs/Intake and Output Vital Signs (last 24 hours): Temp Pulse Resp BP Pulse Ox 97.3 F L 68 20 132/56 L 94 L 09/28/16 08:05 09/28/16 08:05 09/28/16 08:05 09/28/16 08:05 09/28/16 08:05 - Medications Medications: Current Medications Aspirin (Aspirin) 325 mg PO BID [facility] Last Admin: 09/28/16 09:10 Dose: 325 mg Celecoxib (Celebrex) 200 mg PO DAILY PRN PRN Reason: MODERATE 4-7 Last Admin: 09/28/16 09:10 Dose: 200 mg Docusate Sodium (Colace) 100 mg PO BID [facility] Last Admin: 09/28/16 09:11 Dose: 100 mg Finasteride (Proscar) 5 mg PO QPM [facility] Last Admin: 09/27/16 17:26 Dose: 5 mg Magnesium Oxide (Mag-Ox) 400 mg PO DAILY [facility] Last Admin: 09/28/16 09:11 Dose: 400 mg Ondansetron HCl (Zofran Odt) 4 mg PO Q8H PRN PRN Reason: Nausea/Vomiting Last Admin: 09/26/16 08:50 Dose: 4 mg Oxycodone HCl (Oxycontin Extended Release Tab) 20 mg PO Q12 [facility] Last Admin: 09/28/16 09:04 Dose: 20 mg Oxycodone/Acetaminophen (Percocet 5/325 Mg Tab) 1 tab PO Q4 PRN PRN Reason: Pain, moderate (4-7) Stop: 09/30/16 23:10 Last Admin: 09/28/16 04:27 Dose: 1 tab Pantoprazole Sodium (Protonix Ec Tab) 40 mg PO DAILY [facility] Last Admin: 09/28/16 09:11 Dose: 40 mg Fluticasone/Salmeterol (Advair Diskus 500/50) 1 puff IH BID [facility] Last Admin: 09/28/16 09:06 Dose: 1 puff Tamsulosin HCl (Flomax) 0.4 mg PO QPM [facility] Last Admin: 09/27/16 17:23 Dose: 0.4 mg Tiotropium [place] (Spiriva) 18 mcg INH DAILY [facility] Last Admin: 09/28/16 09:12 Dose: 18 mcg Assessment and Plan (1) Gait difficulty Status: Acute (2) Status post right knee replacement Status: Acute (3) Benign prostate hyperplasia Status: Acute
--- NOTE | 2016-09-28 10:38 | CP.PCM.PN ---
Subjective - Date & Time of Evaluation Date of Evaluation: 09/26/16 Time of Evaluation: 09:30 - Subjective Subjective: Patient is doing better with ambulation Has less pain Has no chest pain or SOB. Objective - Vital Signs/Intake and Output Vital Signs (last 24 hours): Temp Pulse Resp BP Pulse Ox 97.3 F L 68 20 132/56 L 94 L 09/28/16 08:05 09/28/16 08:05 09/28/16 08:05 09/28/16 08:05 09/28/16 08:05 - Medications Medications: Current Medications Aspirin (Aspirin) 325 mg PO BID [facility] Last Admin: 09/28/16 09:10 Dose: 325 mg Celecoxib (Celebrex) 200 mg PO DAILY PRN PRN Reason: MODERATE 4-7 Last Admin: 09/28/16 09:10 Dose: 200 mg Docusate Sodium (Colace) 100 mg PO BID [facility] Last Admin: 09/28/16 09:11 Dose: 100 mg Finasteride (Proscar) 5 mg PO QPM [facility] Last Admin: 09/27/16 17:26 Dose: 5 mg Magnesium Oxide (Mag-Ox) 400 mg PO DAILY [facility] Last Admin: 09/28/16 09:11 Dose: 400 mg Ondansetron HCl (Zofran Odt) 4 mg PO Q8H PRN PRN Reason: Nausea/Vomiting Last Admin: 09/26/16 08:50 Dose: 4 mg Oxycodone HCl (Oxycontin Extended Release Tab) 20 mg PO Q12 [facility] Last Admin: 09/28/16 09:04 Dose: 20 mg Oxycodone/Acetaminophen (Percocet 5/325 Mg Tab) 1 tab PO Q4 PRN PRN Reason: Pain, moderate (4-7) Stop: 09/30/16 23:10 Last Admin: 09/28/16 04:27 Dose: 1 tab Pantoprazole Sodium (Protonix Ec Tab) 40 mg PO DAILY [facility] Last Admin: 09/28/16 09:11 Dose: 40 mg Fluticasone/Salmeterol (Advair Diskus 500/50) 1 puff IH BID [facility] Last Admin: 09/28/16 09:06 Dose: 1 puff Tamsulosin HCl (Flomax) 0.4 mg PO QPM [facility] Last Admin: 09/27/16 17:23 Dose: 0.4 mg Tiotropium [place] (Spiriva) 18 mcg INH DAILY [facility] Last Admin: 09/28/16 09:12 Dose: 18 mcg - Head Exam Head Exam: NORMAL INSPECTION - Eye Exam Eye Exam: Normal appearance - ENT Exam ENT Exam: Mucous Membranes Moist - Respiratory Exam Respiratory Exam: NORMAL BREATHING PATTERN - Cardiovascular Exam Cardiovascular Exam: REGULAR RHYTHM - GI/Abdominal Exam GI & Abdominal Exam: Normal Bowel Sounds - Extremities Exam Additional comments: slight tenderness on the wound area - Neurological Exam Neurological Exam: Awake, Oriented x3 Assessment and Plan (1) Gait difficulty Status: Acute (2) Status post right knee replacement Status: Acute (3) Benign prostate hyperplasia Status: Acute
[2016-09-29] MEDS: Oxycodone/Acetaminophen 5/325 mg Tab PO PRN ×5 (01:31→21:59)
[2016-09-29] MEDS: Fluticasone-Salmeterol 500-50mcg Diskus IH SCH ×2 (09:33→16:51)
[2016-09-29] MEDS: Pantoprazole 40 mg EC Tab PO SCH (09:33)
[2016-09-29] MEDS: Magnesium Oxide 400 mg Tab UD PO SCH (09:34)
[2016-09-29] MEDS: oxyCODONE 20 mg ER Tab (oxyCONTIN) PO SCH ×2 (09:34→20:24)
[2016-09-29] MEDS: Tiotropium 18 mcg Cap For Inhalation INH SCH (09:35)
--- NOTE | 2016-09-29 12:12 | CP.PCM.PN ---
Subjective - Date & Time of Evaluation Date of Evaluation: 09/29/16 Time of Evaluation: 12:06 - Subjective Subjective: evaluated with attending. c/o right knee soreness. Tolerating PO. Making urine. Ambulating. ROM improving Objective - Vital Signs/Intake and Output Vital Signs (last 24 hours): Temp Pulse Resp BP Pulse Ox 96.8 F L 65 20 140/94 H 92 L 09/29/16 08:12 09/29/16 08:12 09/29/16 08:12 09/29/16 08:12 09/29/16 08:12 - Medications Medications: Current Medications Aspirin (Aspirin) 325 mg PO BID [facility] Last Admin: 09/29/16 09:33 Dose: 325 mg Celecoxib (Celebrex) 200 mg PO DAILY PRN PRN Reason: MODERATE 4-7 Last Admin: 09/28/16 09:10 Dose: 200 mg Docusate Sodium (Colace) 100 mg PO BID [facility] Last Admin: 09/29/16 09:33 Dose: 100 mg Finasteride (Proscar) 5 mg PO QPM [facility] Last Admin: 09/28/16 17:34 Dose: 5 mg Magnesium Oxide (Mag-Ox) 400 mg PO DAILY [facility] Last Admin: 09/29/16 09:34 Dose: 400 mg Ondansetron HCl (Zofran Odt) 4 mg PO Q8H PRN PRN Reason: Nausea/Vomiting Last Admin: 09/26/16 08:50 Dose: 4 mg Oxycodone HCl (Oxycontin Extended Release Tab) 20 mg PO Q12 [facility] Last Admin: 09/29/16 09:34 Dose: 20 mg Oxycodone/Acetaminophen (Percocet 5/325 Mg Tab) 1 tab PO Q4 PRN PRN Reason: Pain, moderate (4-7) Stop: 09/30/16 23:10 Last Admin: 09/29/16 08:37 Dose: 1 tab Pantoprazole Sodium (Protonix Ec Tab) 40 mg PO DAILY [facility] Last Admin: 09/29/16 09:33 Dose: 40 mg Fluticasone/Salmeterol (Advair Diskus 500/50) 1 puff IH BID [facility] Last Admin: 09/29/16 09:33 Dose: 1 puff Tamsulosin HCl (Flomax) 0.4 mg PO QPM [facility] Last Admin: 09/28/16 17:33 Dose: 0.4 mg Tiotropium [place] (Spiriva) 18 mcg INH DAILY [facility] Last Admin: 09/29/16 09:35 Dose: 18 mcg - Constitutional Appears: Non-toxic, No Acute Distress - Head Exam Head Exam: ATRAUMATIC, NORMAL INSPECTION - Eye Exam Eye Exam: Normal appearance - ENT Exam ENT Exam: Mucous Membranes Moist - Neck Exam Neck Exam: Normal Inspection - Respiratory Exam Respiratory Exam: Rales Additional comments: right upper lung - Cardiovascular Exam Cardiovascular Exam: REGULAR RHYTHM - GI/Abdominal Exam GI & Abdominal Exam: Soft - Extremities Exam Extremities Exam: absent: Pedal Edema Additional comments: right knee dressing CDI, right ROM knee 45 deg - Back Exam Back Exam: NORMAL INSPECTION - Neurological Exam Neurological Exam: Alert, Oriented x3 - Skin Skin Exam: Dry, Warm Assessment and Plan (1) Benign prostate hyperplasia Status: Acute (2) Gait difficulty Status: Acute (3) Status post right knee replacement Status: Acute - Assessment and Plan (Free Text) Plan: -PT, increase ROM as tolerated -pain control -c/w home meds
[2016-09-30] MEDS: Oxycodone/Acetaminophen 5/325 mg Tab PO PRN ×5 (02:48→22:58)
[2016-09-30] MEDS: oxyCODONE 20 mg ER Tab (oxyCONTIN) PO SCH ×2 (09:29→20:44)
[2016-09-30] MEDS: Fluticasone-Salmeterol 500-50mcg Diskus IH SCH ×2 (09:30→20:44)
[2016-09-30] MEDS: Magnesium Oxide 400 mg Tab UD PO SCH (09:34)
[2016-09-30] MEDS: Tiotropium 18 mcg Cap For Inhalation INH SCH (09:35)
[2016-09-30] MEDS: Pantoprazole 40 mg EC Tab PO SCH (09:35)
[2016-09-30] MEDS ORDERED: Povidone Iodine Topical 10% Sol ONE (10:56)
--- NOTE | 2016-09-30 13:56 | CP.PCM.PN ---
Subjective - Date & Time of Evaluation Date of Evaluation: 09/30/16 Time of Evaluation: 13:53 - Subjective Subjective: evaluated with attending. c/o right knee soreness. Tolerating PO. Making urine. Ambulating. ROM improving Objective - Vital Signs/Intake and Output Vital Signs (last 24 hours): Temp Pulse Resp BP Pulse Ox 98.1 F 69 21 126/91 H 94 L 09/30/16 08:18 09/30/16 08:18 09/30/16 08:18 09/30/16 08:18 09/30/16 08:18 - Medications Medications: Current Medications Aspirin (Aspirin) 325 mg PO BID [facility] Last Admin: 09/30/16 09:33 Dose: 325 mg Celecoxib (Celebrex) 200 mg PO DAILY PRN PRN Reason: MODERATE 4-7 Last Admin: 09/28/16 09:10 Dose: 200 mg Docusate Sodium (Colace) 100 mg PO BID [facility] Last Admin: 09/30/16 09:34 Dose: 100 mg Finasteride (Proscar) 5 mg PO QPM [facility] Last Admin: 09/29/16 17:50 Dose: 5 mg Magnesium Oxide (Mag-Ox) 400 mg PO DAILY [facility] Last Admin: 09/30/16 09:34 Dose: 400 mg Ondansetron HCl (Zofran Odt) 4 mg PO Q8H PRN PRN Reason: Nausea/Vomiting Last Admin: 09/26/16 08:50 Dose: 4 mg Oxycodone HCl (Oxycontin Extended Release Tab) 20 mg PO Q12 [facility] Last Admin: 09/30/16 09:29 Dose: 20 mg Oxycodone/Acetaminophen (Percocet 5/325 Mg Tab) 1 tab PO Q4 PRN PRN Reason: Pain, moderate (4-7) Stop: 09/30/16 23:10 Last Admin: 09/30/16 13:33 Dose: 1 tab Pantoprazole Sodium (Protonix Ec Tab) 40 mg PO DAILY [facility] Last Admin: 09/30/16 09:35 Dose: 40 mg Fluticasone/Salmeterol (Advair Diskus 500/50) 1 puff IH Q12@0900,2100 [facility] Last Admin: 09/30/16 09:30 Dose: 1 puff Tamsulosin HCl (Flomax) 0.4 mg PO QPM [facility] Last Admin: 09/29/16 17:49 Dose: 0.4 mg Tiotropium [place] (Spiriva) 18 mcg INH DAILY [facility] Last Admin: 09/30/16 09:35 Dose: 18 mcg - Constitutional Appears: Non-toxic, No Acute Distress - Head Exam Head Exam: ATRAUMATIC, NORMAL INSPECTION - Eye Exam Eye Exam: Normal appearance - ENT Exam ENT Exam: Mucous Membranes Moist - Neck Exam Neck Exam: Normal Inspection - Respiratory Exam Respiratory Exam: Clear to Ausculation Bilateral - Cardiovascular Exam Cardiovascular Exam: REGULAR RHYTHM - GI/Abdominal Exam GI & Abdominal Exam: Soft - Extremities Exam Extremities Exam: absent: Pedal Edema Additional comments: right knee dressing CDI flaca in place, minimal erythema along incision site - Back Exam Back Exam: NORMAL INSPECTION - Neurological Exam Neurological Exam: Alert, Oriented x3 - Skin Skin Exam: Dry, Warm Assessment and Plan (1) Benign prostate hyperplasia Status: Acute (2) Gait difficulty Status: Acute (3) Status post right knee replacement Status: Acute - Assessment and Plan (Free Text) Plan: -PT, increase ROM as tolerated -pain control -c/w home meds Dispo planning per TERRENCE CACERES
[2016-09-30 16:08] VITALS: RESP 20
[2016-09-30 20:03] VITALS: BP 136/79; PULSE 70; TEMP 98.1; O2SAT 98
[2016-10-01] MEDS ORDERED: Oxycodone/Acetaminophen 5/325 mg Tab ONE (05:22)
[2016-10-01 19:47] LABS: HEMATOCRIT 34.7 % (35.0-51.0); MEAN CELL VOLUME 86.2 fl (80.0-94.0); MEAN CORPUSCULAR HEMOGLOBIN 27.9 pg (27.0-31.0); MEAN CORPUSCULAR HGB CONC 32.4 g/dL (33.0-37.0); RED CELL DISTRIBUTION WIDTH 15.8 % (11.5-14.5); WHITE BLOOD COUNT 11.2 K/uL (4.8-10.8)
== END 2016-10-01 11:30 | disposition home or self-care (01) | DRG 561 ==
LOC: H.TCU 18:26
PROVIDERS: ADMIT Family Medicine; ATTEND Family Medicine
PROC: F08Z4ZZ Home Management Treatment (ICD-10-PCS; principal; 2016-09-24)
PROC: F07L0FZ Range of Motion and Joint Mobility Treatment of Musculoskeletal System - Lower Back / Lower Extremity using Assistive, Adaptive, Supportive or Protective Equipment (ICD-10-PCS; 2016-09-24)
PROC: F07K0FZ Range of Motion and Joint Mobility Treatment of Musculoskeletal System - Upper Back / Upper Extremity using Assistive, Adaptive, Supportive or Protective Equipment (ICD-10-PCS; 2016-09-24)
PROC: F07Z9FZ Gait Training/Functional Ambulation Treatment using Assistive, Adaptive, Supportive or Protective Equipment (ICD-10-PCS; 2016-09-24)
PROC: F07L6FZ Therapeutic Exercise Treatment of Musculoskeletal System - Lower Back / Lower Extremity using Assistive, Adaptive, Supportive or Protective Equipment (ICD-10-PCS; 2016-09-24)
DX: Z47.1 Aftercare following joint replacement surgery (principal); J44.9 Chronic obstructive pulmonary disease, unspecified; Z96.651 Presence of right artificial knee joint; N40.0 Benign prostatic hyperplasia without lower urinary tract symptoms; Z87.891 Personal history of nicotine dependence; R26.2 Difficulty in walking, not elsewhere classified

== ENCOUNTER 2016-12-22 06:15 | Inpatient (IN) | payer MEDICARE, SELFPAY ==
[2016-12-22 06:45] VITALS: BMI 29.5
[2016-12-22] MEDS ORDERED: Rocuronium 10 mg/ml (5 ml) ONE ×2 (06:59→09:15)
[2016-12-22] MEDS ORDERED: Phenylephrine 10 mg/ml Inj ONE (06:59)
[2016-12-22] MEDS ORDERED: Succinylcholine 200 mg/10 ml Inj IV ONE (06:59)
[2016-12-22] MEDS ORDERED: ePHEDrine 50 mg/ml Inj ONE (06:59)
[2016-12-22] MEDS ORDERED: Propofol 10 mg/ml Inj (20 ML) ONE ×2 (06:59→10:59)
[2016-12-22] MEDS ORDERED: Lactated Ringer's 1,000 ML IV ONE ×2 (07:15→10:30)
[2016-12-22] MEDS ORDERED: Bupivacaine 0.5% Inj(30mL) ONE (07:18)
[2016-12-22] MEDS ORDERED: Morphine 1 mg/ml preservative-free Inj(Duramorph) ONE (07:18)
[2016-12-22] MEDS ORDERED: Absorbable Gelatin Sponge Size 100 ONE (07:18)
[2016-12-22] MEDS ORDERED: Thrombin Topical 5,000 IU Spray Kit ONE (07:18)
[2016-12-22] MEDS ORDERED: EPINEPHrine 1 mg/ml (1:1000) Inj ONE (07:18)
[2016-12-22] MEDS ORDERED: Midazolam 2 MG/2 ML VIAL ONE (08:39)
[2016-12-22] MEDS ORDERED: Bupivacaine 0.5% 50 ML IJ ONE ×2 (09:38→10:24)
[2016-12-22] MEDS ORDERED: EPINEPHrine 1 mg/ml (1:1000) Inj IV ONE ×2 (09:38→10:24)
[2016-12-22] MEDS ORDERED: Morphine 1 mg/ml preservative-free Inj(Duramorph) IV ONE ×2 (09:38→10:24)
[2016-12-22] MEDS ORDERED: Neostigmine Methylsulfate 3mg/3ml Syringe IV ONE (10:29)
--- NOTE | 2016-12-22 11:05 | PCM.SURG1 ---
Surgeon's Initial Post Op Note - Surgeon's Notes Surgeon: Abner Hernadez MD [place] Planter: EVELYN Madrigal Type of Anesthesia: General Endo Pre-Operative Diagnosis: Left knee osteoarthritis Operative Findings: see op report Post-Operative Diagnosis: same as pre-op dx Operation Performed: L TKR Specimen/Specimens Removed: left knee bone and soft tissue Estimated Blood Loss: EBL {In ML}: 100 Date of Surgery/Procedure: 12/22/16 Time of Surgery/Procedure: 09:45
[2016-12-22] MEDS: HYDROmorphone 0.5 mg/0.5 ml ISec IVP PRN ×2 (11:55→12:10)
[2016-12-22] MEDS: Sodium Chloride 0.9% 1,000 ML IV SCH (13:43)
--- NOTE | 2016-12-22 13:51 | RAD ---
PROCEDURE: Left Knee Radiographs. HISTORY: Pain. COMPARISON: Bilateral knees radiographs 09/03/2016. FINDINGS: BONES: Patient out seen to be status post left total knee replacement with hardware in adequate apparent position. No interval fracture subluxation or dislocation. Postoperative changes are identified in the soft tissues surrounding the left knee joint with skin flaca noted anteriorly. No suspicious lytic or blastic process. JOINTS: Normal. No osteoarthritis. JOINT EFFUSION: Limited postoperative emphysema and bursal effusion noted. OTHER FINDINGS: None. IMPRESSION: Status post left total knee replacement with postoperative changes identified as discussed above.
[2016-12-22] MEDS ORDERED: ceFAZolin 1 GM in Sodium Chloride 0.9% 100 ML IVPB ONE (21:00)
[2016-12-22] MEDS ORDERED: ceFAZolin 1 GM in Sodium Chloride 0.9% 100 ML IVPB SCH (21:00)
[2016-12-22] MEDS: oxyCODONE 10 mg ER Tab (oxyCONTIN) PO SCH (21:18)
[2016-12-23] MEDS: Sodium Chloride 0.9% 1,000 ML IV SCH ×2 (04:15→12:05)
[2016-12-23] MEDS ORDERED: ceFAZolin 1 GM in Sodium Chloride 0.9% 100 ML IVPB ONE (05:00)
[2016-12-23 07:35] LABS: BASO # 0.1 K/uL (0.0-0.2); BASO % 0.5 % (0.0-2.0); EOS # 0.2 K/uL (0.0-0.7); EOS % 1.9 % (0.0-4.0); HEMOGLOBIN 11.9 g/dL (12.0-18.0); LYMPH # 1.8 K/uL (1.0-4.3); LYMPH % 15.2 % (20.0-40.0); MEAN CELL VOLUME 83.4 fl (80.0-94.0); MEAN CORPUSCULAR HEMOGLOBIN 27.9 pg (27.0-31.0); MEAN CORPUSCULAR HGB CONC 33.4 g/dL (33.0-37.0); MEAN PLATELET VOLUME 9.8 fl (7.2-11.7); MONO # 1.3 K/uL (0.0-0.8); MONO % 11.2 % (0.0-10.0); NEUT # 8.3 K/uL (1.8-7.0); NEUT % 71.2 % (50.0-75.0); NRBC % 0.2 % (0.0-0.0); RBC 4.25 Mil/uL (4.40-5.90); RED CELL DISTRIBUTION WIDTH 15.6 % (11.5-14.5); WHITE BLOOD COUNT 11.7 K/uL (4.8-10.8)
[2016-12-23 07:39] LABS: ALBUMIN 3.3 g/dL (3.5-5.0); ALT/SGPT 48 U/L (21-72); AST/SGOT 32 U/L (17-59); BLOOD UREA NITROGEN 22 mg/dl (9-20); GFR AFRICAN-AMERICAN > 60; GFR NON-AFRICAN AMERICAN > 60
[2016-12-23 07:44] LABS: ALB/GLOB RATIO 1.3 (1.0-2.1)
[2016-12-23 08:50] VITALS: RESP 20
[2016-12-23] MEDS: Pantoprazole 40 mg EC Tab PO SCH (08:56)
[2016-12-23] MEDS: Tiotropium 18 mcg Cap For Inhalation INH SCH (08:57)
[2016-12-23] MEDS: oxyCODONE 10 mg ER Tab (oxyCONTIN) PO SCH ×2 (08:58→21:30)
--- NOTE | 2016-12-23 09:03 | CP.PCM.PN ---
Subjective - Date & Time of Evaluation Date of Evaluation: 12/23/16 Time of Evaluation: 08:45 - Subjective Subjective: S/P LTKR POD#1 Pt seen and examined at bedside, comfortable in bed Pt c/o mild left knee pain Pt denies any SOB, chest pain, N/V/D, numbness/tingling LLE Objective - Vital Signs/Intake and Output Vital Signs (last 24 hours): Temp Pulse Resp BP Pulse Ox 98.1 F 68 20 128/81 92 L 12/23/16 08:50 12/23/16 08:50 12/23/16 08:50 12/23/16 08:50 12/23/16 08:50 - Medications Medications: Current Medications Acetaminophen (Tylenol 325mg Tab) 325 mg PO Q4 PRN PRN Reason: pain1-3 Aspirin (Aspirin) 325 mg PO BID [facility] Celecoxib (Celebrex) 200 mg PO Q12 [facility] Last Admin: 12/22/16 21:20 Dose: 200 mg Finasteride (Proscar) 5 mg PO HS [facility] Last Admin: 12/22/16 21:20 Dose: 5 mg Sodium Chloride (Sodium Chloride 0.9%) 1,000 mls @ 125 mls/hr IV .Q8H [facility] Last Admin: 12/23/16 04:15 Dose: Not Given Ketorolac Tromethamine (Toradol) 15 mg IM Q8 [facility] Stop: 12/24/16 19:00 Last Admin: 12/23/16 00:19 Dose: 15 mg Morphine Sulfate (Morphine) 2 mg IVP Q6 PRN PRN Reason: Pain, severe (8-10) Oxycodone HCl (Oxycontin Extended Release Tab) 10 mg PO Q12 [facility] Stop: 01/05/17 21:01 Last Admin: 12/22/16 21:18 Dose: 10 mg Oxycodone/Acetaminophen (Percocet 5/325 Mg Tab) 1 tab PO Q4 PRN PRN Reason: pain4-6 Stop: 12/25/16 13:31 Pantoprazole Sodium (Protonix Ec Tab) 40 mg PO DAILY [facility] Tamsulosin HCl (Flomax) 0.4 mg PO DAILY [facility] Tiotropium [place] (Spiriva) 18 mcg INH DAILY [facility] - Labs Labs: 12/23/16 06:00 12/23/16 06:00 - Constitutional Appears: Well, No Acute Distress - Respiratory Exam Respiratory Exam: Clear to Ausculation Bilateral, NORMAL BREATHING PATTERN - Cardiovascular Exam Cardiovascular Exam: REGULAR RHYTHM, RRR - Extremities Exam Additional comments: LLE:knee dressing C/D/I Calves soft and nontender b/l N/V intact distally Distal pulses wnl No foot drop Assessment and Plan - Assessment and Plan (Free Text) Assessment: 66 yo M s/p LTKR POD#1 Plan: 66 yo M s/p LTKR POD#1 Pain Control DVT ppx- start aspirin bid today Abx to be stopped within 24 hrs post op Incentive Spirometer PT/OT WBAT LLE Continue current management Discussed with Dr. Hernadez
--- NOTE | 2016-12-23 09:46 | CP.PCM.CON ---
<Aishwarya Orta - Last Filed: 12/23/16 09:43> History of Present Illness - History of Present Illness History of Present Illness: 66 y/o male with PMHx of BPH admitted to [facility] after left total knee replacement. Patient was seen and examined with attending this morning and feels well. Still c/o mild left knee pain well controlled with pain medications. Denies Cp, SBO, N/V, abdominal pain, numbness/tingling LLE or other complains. Passing flatus and bowel movement after surgery. Review of Systems - Review of Systems All systems: reviewed and no additional remarkable complaints except (as per HPI ) Past Patient History - Past Medical History & Family History Past Medical History?: Yes - Past Social History Smoking Status: Former Smoker - CARDIAC Hx Cardiac Disorders: No - PULMONARY Hx Respiratory Disorders: Yes Hx Asthma: Yes ( CHILD) Hx Chronic Obstructive Pulmonary Disease (COPD): Yes - NEUROLOGICAL Hx Neurological Disorder: No - HEENT Hx HEENT Problems: No - RENAL Hx Chronic Kidney Disease: No - ENDOCRINE/METABOLIC Hx Endocrine Disorders: No - HEMATOLOGICAL/ONCOLOGICAL Hx Blood Disorders: No - INTEGUMENTARY Hx Dermatological Problems: No - MUSCULOSKELETAL/RHEUMATOLOGICAL Hx Musculoskeletal Disorders: Yes Hx Arthritis: Yes (KNEES AND LEGS) Hx Falls: No - GASTROINTESTINAL Hx Gastrointestinal Disorders: No Other/Comment: HEARTBURN - GENITOURINARY/GYNECOLOGICAL Hx Genitourinary Disorders: Yes Hx Prostate Problems: Yes - PSYCHIATRIC Hx Psychophysiologic Disorder: Yes Hx Emotional Abuse: No Hx Post Traumatic Stress Disorder: Yes Hx Physical Abuse: No Hx Substance Use: No - SURGICAL HISTORY Hx Surgeries: Yes Hx Arthroscopy: Yes (LEFT KNEE) Hx Joint Replacement: Yes (R knee replacement 09/24/16) - ANESTHESIA Hx Anesthesia: Yes Hx Anesthesia Reactions: No Hx Malignant Hyperthermia: No Has any member of the family had a problem w/ anesthesia?: No Meds Allergies/Adverse Reactions: Allergies Allergy/AdvReac Type Severity Reaction Status Date / Time No Known Allergies Allergy Verified 12/24/16 15:22 - Medications Medications: Current Medications Acetaminophen (Tylenol 325mg Tab) 325 mg PO Q4 PRN PRN Reason: pain1-3 Aspirin (Aspirin) 325 mg PO BID [facility] Last Admin: 12/23/16 08:51 Dose: 325 mg Celecoxib (Celebrex) 200 mg PO Q12 [facility] Last Admin: 12/23/16 08:51 Dose: 200 mg Finasteride (Proscar) 5 mg PO HS [facility] Last Admin: 12/22/16 21:20 Dose: 5 mg Sodium Chloride (Sodium Chloride 0.9%) 1,000 mls @ 125 mls/hr IV .Q8H [facility] Last Admin: 12/23/16 04:15 Dose: Not Given Ketorolac Tromethamine (Toradol) 15 mg IM Q8 [facility] Stop: 12/24/16 19:00 Last Admin: 12/23/16 00:19 Dose: 15 mg Morphine Sulfate (Morphine) 2 mg IVP Q6 PRN PRN Reason: Pain, severe (8-10) Oxycodone HCl (Oxycontin Extended Release Tab) 10 mg PO Q12 [facility] Stop: 01/05/17 21:01 Last Admin: 12/23/16 08:58 Dose: 10 mg Oxycodone/Acetaminophen (Percocet 5/325 Mg Tab) 1 tab PO Q4 PRN PRN Reason: pain4-6 Stop: 12/25/16 13:31 Pantoprazole Sodium (Protonix Ec Tab) 40 mg PO DAILY [facility] Last Admin: 12/23/16 08:56 Dose: 40 mg Tamsulosin HCl (Flomax) 0.4 mg PO DAILY [facility] Last Admin: 12/23/16 08:56 Dose: 0.4 mg Tiotropium [place] (Spiriva) 18 mcg INH DAILY [facility] Last Admin: 12/23/16 08:57 Dose: 18 mcg Physical Exam - Constitutional Appears: Non-toxic - Eye Exam Eye Exam: Normal appearance - ENT Exam ENT Exam: Mucous Membranes Moist - Respiratory Exam Respiratory Exam: Clear to Auscultation Bilateral, NORMAL BREATHING PATTERN. absent: Respiratory Distress - Cardiovascular Exam Cardiovascular Exam: REGULAR RHYTHM, +S1, +S2 - GI/Abdominal Exam GI & Abdominal Exam: Normal Bowel Sounds, Soft. absent: Guarding, Rigid, Tenderness - Extremities Exam Extremities exam: Positive for: normal inspection. Negative for: calf tenderness, pedal edema Additional comments: LLE:knee dressing C/D/I Calves soft and nontender b/l N/V intact distally Distal pulses wnl - Neurological Exam Neurological exam: Alert, Oriented x3 - Psychiatric Exam Psychiatric exam: Normal Affect, Normal Mood - Skin Skin Exam: Dry, Intact, Normal Color Results - Vital Signs Recent Vital Signs: Last Vital Signs Temp 98.1 F 12/23/16 08:50 Pulse 68 12/23/16 08:50 Resp 20 12/23/16 08:50 BP 128/81 12/23/16 08:50 Pulse Ox 92 L 12/23/16 08:50 - Labs Result Diagrams: 12/23/16 06:00 12/23/16 06:00 Labs: Laboratory Results - last 24 hr 12/23/16 12/23/16 06:00 06:00 WBC 11.7 H RBC 4.25 L Hgb 11.9 L Hct 35.5 MCV 83.4 D MCH 27.9 MCHC 33.4 RDW 15.6 H Plt Count 129 L D MPV 9.8 Neut % (Auto) 71.2 Lymph % (Auto) 15.2 L [place] % (Auto) 11.2 H Eos % (Auto) 1.9 Baso % (Auto) 0.5 Neut # 8.3 H Lymph # 1.8 [place] # 1.3 H Eos # 0.2 Baso # 0.1 Sodium 135 Potassium 4.2 Chloride 103 Carbon Dioxide 27 Anion Gap 9 L BUN 22 H Creatinine 0.8 Est GFR ( Amer) > 60 Est GFR (Non-Af Amer) > 60 Random Glucose 104 Calcium 8.0 L Total Bilirubin 0.9 AST 32 ALT 48 Alkaline Phosphatase 46 Total Protein 5.8 L Albumin 3.3 L D Globulin 2.5 Albumin/Globulin Ratio 1.3 Assessment & Plan - Assessment and Plan (Free Text) Assessment: 66 yo M s/p LTKR POD#1 Plan: S/p LTKR POD#1 c/w Pain Control discontinued Abx within 24 hrs post op c/w Incentive Spirometer PT evaluation for TCU transfer for rehab f/u morning labs, H/H BPH c/w home medications DVT prophylaxis Consider start DVT ppx today as per Ortho recommendations - Date & Time Date: 12/23/16 Time: 08:55 <Cesar Tam - Last Filed: 12/25/16 09:51> Results - Vital Signs Recent Vital Signs: Last Vital Signs Temp 97.8 F 12/24/16 07:36 Pulse 64 12/24/16 07:36 Resp 20 12/24/16 07:36 BP 127/81 12/24/16 07:36 Pulse Ox 95 12/24/16 07:36 - Labs Result Diagrams: 12/23/16 06:00 12/23/16 06:00 Assessment & Plan - Assessment and Plan (Free Text) Plan: I was present during evaluation and discussed with Dr Orta re plans of care and mgt. Cesar Tam M.D.
[2016-12-23] MEDS: Oxycodone/Acetaminophen 5/325 mg Tab PO PRN ×2 (12:03→22:53)
[2016-12-23] MEDS ORDERED: Morphine 4 MG/ML VIAL IVP PRN (15:00)
[2016-12-24 07:36] VITALS: BP 127/81; PULSE 64; TEMP 97.8; O2SAT 95
[2016-12-24] MEDS: oxyCODONE 10 mg ER Tab (oxyCONTIN) PO SCH (08:36)
[2016-12-24] MEDS: Tiotropium 18 mcg Cap For Inhalation INH SCH (08:38)
[2016-12-24] MEDS: Pantoprazole 40 mg EC Tab PO SCH (08:38)
--- NOTE | 2016-12-25 07:04 | CP.PCM.DIS ---
<Aishwarya Orta - Last Filed: 12/25/16 07:02> Provider - Provider Date of Admission: 12/22/16 11:05 Attending physician: Cesar Tam MD Primary care physician: Scout Burger MD Time Spent in preparation of Discharge (in minutes): 30 Diagnosis - Discharge Diagnosis (1) Gait difficulty Status: Acute Comment: s/p LTKR. transfer to TCU. PT/OT evaluation (2) Status post total left knee replacement Status: Acute Comment: on POD #2. c/w pain control. c/w DVT prophylaxis. transfer to TCU (3) Benign prostate hyperplasia Status: Chronic Comment: c/w [place] [facility] Course - Lab Results Lab Results: Most Recent Lab Values WBC 11.7 K/uL (4.8-10.8) H 12/23/16 06:00 RBC 4.25 Mil/uL (4.40-5.90) L 12/23/16 06:00 Hgb 11.9 g/dL (12.0-18.0) L 12/23/16 06:00 Hct 35.5 % (35.0-51.0) 12/23/16 06:00 MCV 83.4 fl (80.0-94.0) D 12/23/16 06:00 MCH 27.9 pg (27.0-31.0) 12/23/16 06:00 MCHC 33.4 g/dL (33.0-37.0) 12/23/16 06:00 RDW 15.6 % (11.5-14.5) H 12/23/16 06:00 Plt Count 129 K/uL (130-400) L D 12/23/16 06:00 MPV 9.8 fl (7.2-11.7) 12/23/16 06:00 Neut % (Auto) 71.2 % (50.0-75.0) 12/23/16 06:00 Lymph % (Auto) 15.2 % (20.0-40.0) L 12/23/16 06:00 [place] % (Auto) 11.2 % (0.0-10.0) H 12/23/16 06:00 Eos % (Auto) 1.9 % (0.0-4.0) 12/23/16 06:00 Baso % (Auto) 0.5 % (0.0-2.0) 12/23/16 06:00 Neut # 8.3 K/uL (1.8-7.0) H 12/23/16 06:00 Lymph # 1.8 K/uL (1.0-4.3) 12/23/16 06:00 [place] # 1.3 K/uL (0.0-0.8) H 12/23/16 06:00 Eos # 0.2 K/uL (0.0-0.7) 12/23/16 06:00 Baso # 0.1 K/uL (0.0-0.2) 12/23/16 06:00 Sodium 135 mmol/l (132-148) 12/23/16 06:00 Potassium 4.2 MMOL/L (3.6-5.0) 12/23/16 06:00 Chloride 103 mmol/L (98-107) 12/23/16 06:00 Carbon Dioxide 27 mmol/L (22-30) 12/23/16 06:00 Anion Gap 9 (10-20) L 12/23/16 06:00 BUN 22 mg/dl (9-20) H 12/23/16 06:00 Creatinine 0.8 mg/dL (0.8-1.5) 12/23/16 06:00 Est GFR ( Amer) > 60 12/23/16 06:00 Est GFR (Non-Af Amer) > 60 12/23/16 06:00 Random Glucose 104 mg/dL (75-110) 12/23/16 06:00 Calcium 8.0 mg/dL (8.4-10.2) L 12/23/16 06:00 Total Bilirubin 0.9 mg/dl (0.2-1.3) 12/23/16 06:00 AST 32 U/L (17-59) 12/23/16 06:00 ALT 48 U/L (21-72) 12/23/16 06:00 Alkaline Phosphatase 46 U/L (38-126) 12/23/16 06:00 Total Protein 5.8 G/DL (6.3-8.2) L 12/23/16 06:00 Albumin 3.3 g/dL (3.5-5.0) L D 12/23/16 06:00 Globulin 2.5 gm/dL (2.2-3.9) 12/23/16 06:00 Albumin/Globulin Ratio 1.3 (1.0-2.1) 12/23/16 06:00 Blood Type O NEGATIVE 12/22/16 06:20 Antibody Screen Negative 12/22/16 06:20 BBK History Checked Patient has bt 12/22/16 06:20 - Date & Time of H&P Date of H&P: 12/22/16 Time of H&P: 11:00 Discharge Exam - ENT Exam ENT Exam: Mucous Membranes Moist - Respiratory Exam Respiratory Exam: Clear to PA & Lateral, NORMAL BREATHING PATTERN - Cardiovascular Exam Cardiovascular Exam: REGULAR RHYTHM, +S1, +S2 - GI/Abdominal Exam GI & Abdominal Exam: Normal Bowel Sounds, Soft. absent: Distended, Firm, Guarding, Rigid, Tenderness - Extremities Exam Extremities exam: normal inspection Additional comments: no calf tenderness, no edema - Neurological Exam Neurological exam: Alert, Oriented x3 - Psychiatric Exam Psychiatric exam: Normal Affect, Normal Mood - Skin Skin Exam: Dry, Intact, Normal Color Discharge Plan - Follow Up Plan Condition: GOOD Disposition: TRANSF TO SNF Instructions: Knee Replacement (DC) Additional Instructions: cleared for discharge to TCU today by and cont. PT/OT pain control I was present during evaluation and discussed with Dr Orta re plans of care. Cesar Tam M.D. Referrals: Scout Burger [Primary Care Provider] - Abner Hernadez MD [Staff Provider] - Cesar Tam MD [Staff Provider] - <Cesar Tam - Last Filed: 12/25/16 09:54> Provider - Provider Date of Admission: 12/22/16 11:05 Attending physician: Cesar Tam MD Primary care physician: Scout Burger MD Hospital Course - Lab Results Lab Results: Most Recent Lab Values WBC 11.7 K/uL (4.8-10.8) H 12/23/16 06:00 RBC 4.25 Mil/uL (4.40-5.90) L 12/23/16 06:00 Hgb 11.9 g/dL (12.0-18.0) L 12/23/16 06:00 Hct 35.5 % (35.0-51.0) 12/23/16 06:00 MCV 83.4 fl (80.0-94.0) D 12/23/16 06:00 MCH 27.9 pg (27.0-31.0) 12/23/16 06:00 MCHC 33.4 g/dL (33.0-37.0) 12/23/16 06:00 RDW 15.6 % (11.5-14.5) H 12/23/16 06:00 Plt Count 129 K/uL (130-400) L D 12/23/16 06:00 MPV 9.8 fl (7.2-11.7) 12/23/16 06:00 Neut % (Auto) 71.2 % (50.0-75.0) 12/23/16 06:00 Lymph % (Auto) 15.2 % (20.0-40.0) L 12/23/16 06:00 [place] % (Auto) 11.2 % (0.0-10.0) H 12/23/16 06:00 Eos % (Auto) 1.9 % (0.0-4.0) 12/23/16 06:00 Baso % (Auto) 0.5 % (0.0-2.0) 12/23/16 06:00 Neut # 8.3 K/uL (1.8-7.0) H 12/23/16 06:00 Lymph # 1.8 K/uL (1.0-4.3) 12/23/16 06:00 [place] # 1.3 K/uL (0.0-0.8) H 12/23/16 06:00 Eos # 0.2 K/uL (0.0-0.7) 12/23/16 06:00 Baso # 0.1 K/uL (0.0-0.2) 12/23/16 06:00 Sodium 135 mmol/l (132-148) 12/23/16 06:00 Potassium 4.2 MMOL/L (3.6-5.0) 12/23/16 06:00 Chloride 103 mmol/L (98-107) 12/23/16 06:00 Carbon Dioxide 27 mmol/L (22-30) 12/23/16 06:00 Anion Gap 9 (10-20) L 12/23/16 06:00 BUN 22 mg/dl (9-20) H 12/23/16 06:00 Creatinine 0.8 mg/dL (0.8-1.5) 12/23/16 06:00 Est GFR ( Amer) > 60 12/23/16 06:00 Est GFR (Non-Af Amer) > 60 12/23/16 06:00 Random Glucose 104 mg/dL (75-110) 12/23/16 06:00 Calcium 8.0 mg/dL (8.4-10.2) L 12/23/16 06:00 Total Bilirubin 0.9 mg/dl (0.2-1.3) 12/23/16 06:00 AST 32 U/L (17-59) 12/23/16 06:00 ALT 48 U/L (21-72) 12/23/16 06:00 Alkaline Phosphatase 46 U/L (38-126) 12/23/16 06:00 Total Protein 5.8 G/DL (6.3-8.2) L 12/23/16 06:00 Albumin 3.3 g/dL (3.5-5.0) L D 12/23/16 06:00 Globulin 2.5 gm/dL (2.2-3.9) 12/23/16 06:00 Albumin/Globulin Ratio 1.3 (1.0-2.1) 12/23/16 06:00 Blood Type O NEGATIVE 12/22/16 06:20 Antibody Screen Negative 12/22/16 06:20 BBK History Checked Patient has bt 12/22/16 06:20
--- NOTE | 2016-12-25 18:59 | OP ---
PROCEDURE DATE: 12/22/2016 ATTENDING PHYSICIAN: Dr. Abner Hernadez MD. [employer]: RAHEL Madrigal. PREOPERATIVE DIAGNOSIS: Left knee osteoarthritis. POSTOPERATIVE DIAGNOSIS: Left knee osteoarthritis. PROCEDURE: Left total knee replacement. IMPLANTS SIZE: [employer] size 5 femur, size 5 tibial baseplate, 11 mm polyethylene insert, 38 mm patellar button. ANESTHESIA TYPE: General. ESTIMATED BLOOD LOSS: 50 mL. COMPLICATIONS: None. HISTORY: The patient with prolonged history of left knee pain progressively getting worse despite extensive conservative management, which included activity modification, injections, anti-inflammatory modification, and physical therapy. X-rays had revealed advanced arthritis. The patient was indicated for total knee replacement due to continued pain and limited mobility. I had a detailed discussion with the patient in the office explaining the nature of the surgery, alternatives of surgery, risks and benefits, rehabilitation protocol, and surgical markings. Risks of surgery include but not limited to continued pain, lack of motion, infection, vascular injury, DVT/PE, nerve injury including peroneal nerve dysfunction, reflex sympathetic dystrophy, compartment syndrome, unforeseen medical and/or anesthesia complications, limb loss, and even . The patient expressed an understanding of the risks and possible benefits of the procedure, and is also aware of the alternatives to surgery. PROCEDURE: The patient was transported to the operating room and placed in the supine position, general anesthesia was obtained. Exam under anesthesia revealed 5 degrees of varus alignment, range of motion from 5-110, stable to varus and valgus stress. ____ Planned tibial cut was made with power saw, using extramedullary guide, perpendicular to mechanical axis of the tibia. After the cut was made, the alignment was also checked and was found to be appropriate. Next, the knee was placed into 90 degrees of flexion. A drill hole was made within the femoral notch anterior to PCL insertion for placement of intramedullary femoral chip. Intramedullary femoral chip was inserted within the femoral canal and planned distal femoral cut was made. After the cut, knee was brought into full extension. Spacer blocks were used to check the extension balancing both in full extension and 30 degrees of flexion. It was found that 11 mm trial spacer block allowed full extension with symmetric varus and valgus balancing. Next, we proceed with patella resurfacing. Patella width was found to 24 mm. Using the free-hand technique, the arthritic patellar surface was resected. Patella was sized using the guide and it was noted that 38 mm patella dome button would be appropriate for the patient. Next, the size of femoral component was determined using the posterior referencing guide. It was noted that a size 5 femur would be appropriate for this patient without causing any significant notching. A 4 x 1 cutting block was placed and flexion gap balancing was checked. The flexion gap was found to be symmetric to the extension gap. Anterior and posterior condyle, anterior and posterior chamfer cuts were made. Next, appropriate size box cut for femoral component was prepared using the guide. The femoral trial component was impacted onto the distal femur. Appropriate size tibial trial component was also placed on the cut surface of the tibia. Using the drill and punch, keel for tibial implant was prepared. Trial tibial tray was secured onto the tibia using pins. Different size trial polyethylene inserts were secured onto the trial tibial tray to critically assess the following parameters: Full range of motion, extension and flexion gap balancing, mid-flexion stability, anterior and posterior drawer, and patellar tracking. All parameter were found to be satisfactory with size 11 mm insert. During this procedure, I was assisted by Hakan Holbrook, who assisted in positioning the patient on the operating room table as well as transferring the patient from the operating room table to the recovery room stretcher. In addition, Hakan Holbrook assisted me during the actual operative procedure by positioning, protecting critical neurovascular structures, exposure of the joint, and proper positioning of the implants. The presence of Hakan Holbrook as my operative clinical services assistant, was medically necessary to ensure the utmost safety of the patient in the pre, intra-, and postoperative periods. Abner Hernadez MD
== END 2016-12-24 15:05 | DRG 470 ==
LOC: H.OPSURG 06:15 → H.MEDSURG1 11:05
PROVIDERS: ADMIT Family Medicine; ATTEND Family Medicine
PROC: 0SRD0JZ Replacement of Left Knee Joint with Synthetic Substitute, Open Approach (ICD-10-PCS; principal; 2016-12-22 08:00)
DX: M17.12 Unilateral primary osteoarthritis, left knee (principal); J44.9 Chronic obstructive pulmonary disease, unspecified; N40.0 Benign prostatic hyperplasia without lower urinary tract symptoms; Z96.651 Presence of right artificial knee joint; Z87.891 Personal history of nicotine dependence

== ENCOUNTER 2016-12-24 11:41 | Inpatient (IN) | payer MEDICARE, SELFPAY ==
[2016-12-24 16:28] VITALS: RESP 20
[2016-12-24] MEDS: Oxycodone/Acetaminophen 5/325 mg Tab PO PRN (21:45)
[2016-12-24] MEDS: oxyCODONE 10 mg ER Tab (oxyCONTIN) PO SCH (22:35)
[2016-12-25] MEDS: Oxycodone/Acetaminophen 5/325 mg Tab PO PRN ×2 (06:00→18:33)
[2016-12-25 07:35] LABS: HEMOGLOBIN 10.9 g/dL (12.0-18.0); MEAN CELL VOLUME 82.8 fl (80.0-94.0); MEAN CORPUSCULAR HEMOGLOBIN 27.7 pg (27.0-31.0); MEAN CORPUSCULAR HGB CONC 33.4 g/dL (33.0-37.0); RBC 3.95 Mil/uL (4.40-5.90); RED CELL DISTRIBUTION WIDTH 15.7 % (11.5-14.5); WHITE BLOOD COUNT 11.6 K/uL (4.8-10.8)
[2016-12-25 07:41] LABS: BLOOD UREA NITROGEN 13 mg/dl (9-20); CALCIUM 8.8 mg/dL (8.4-10.2); GFR AFRICAN-AMERICAN > 60; GFR NON-AFRICAN AMERICAN > 60
--- NOTE | 2016-12-25 09:58 | CP.PCM.HP ---
History of Present Illness - History of Present Illness History of Present Illness: This is a 66 y/o male admitted for further rehab. He had a TKR left for progressive OA knee. Post op period was uncomplicated. Has a hx of BPH. Had a recent right TKR. Present on Admission - Present on Admission Any Indicators Present on Admission: No History of DVT/PE: No History of Uncontrolled Diabetes: No Urinary Catheter: No Decubitus Ulcer Present: No Review of Systems - Musculoskeletal Musculoskeletal: Arthralgias, Back Pain Past Patient History - Past Medical History & Family History Past Medical History?: Yes - Past Social History Smoking Status: Former Smoker - CARDIAC Hx Cardiac Disorders: No - PULMONARY Hx Respiratory Disorders: Yes Hx Asthma: Yes ( CHILD) Hx Chronic Obstructive Pulmonary Disease (COPD): Yes - NEUROLOGICAL Hx Neurological Disorder: No - HEENT Hx HEENT Problems: No - RENAL Hx Chronic Kidney Disease: No - ENDOCRINE/METABOLIC Hx Endocrine Disorders: No - HEMATOLOGICAL/ONCOLOGICAL Hx Blood Disorders: No Hx AIDS: No Hx Human Immunodeficiency Virus (HIV): No - INTEGUMENTARY Hx Dermatological Problems: No - MUSCULOSKELETAL/RHEUMATOLOGICAL Hx Musculoskeletal Disorders: Yes Hx Arthritis: Yes (KNEES AND LEGS) Hx Falls: No - GASTROINTESTINAL Hx Gastrointestinal Disorders: No Other/Comment: HEARTBURN - GENITOURINARY/GYNECOLOGICAL Hx Genitourinary Disorders: Yes Hx Prostate Problems: Yes - PSYCHIATRIC Hx Psychophysiologic Disorder: Yes Hx Emotional Abuse: No Hx Post Traumatic Stress Disorder: Yes Hx Physical Abuse: No Hx Substance Use: No - SURGICAL HISTORY Hx Surgeries: Yes Hx Arthroscopy: Yes (LEFT KNEE) Hx Joint Replacement: Yes (R knee replacement 09/24/16) Other/Comment: 11/21/16 left total knee replacement - ANESTHESIA Hx Anesthesia: Yes Hx Anesthesia Reactions: No Hx Malignant Hyperthermia: No Meds Allergies/Adverse Reactions: Allergies Allergy/AdvReac Type Severity Reaction Status Date / Time No Known Allergies Allergy Verified 12/24/16 15:22 Physical Exam - Head Exam Head Exam: NORMAL INSPECTION - Eye Exam Eye Exam: Normal appearance - ENT Exam ENT Exam: Mucous Membranes Moist - Respiratory Exam Respiratory Exam: Clear to Auscultation Bilateral - Cardiovascular Exam Cardiovascular Exam: REGULAR RHYTHM - GI/Abdominal Exam GI & Abdominal Exam: Normal Bowel Sounds - Neurological Exam Neurological exam: Alert, CN II-XII Intact, Oriented x3 - Psychiatric Exam Psychiatric exam: Normal Mood Results - Vital Signs Recent Vital Signs: Last Vital Signs Temp 98.1 F 12/25/16 08:36 Pulse 76 12/25/16 08:36 Resp 20 12/25/16 08:36 BP 104/67 12/25/16 08:36 Pulse Ox 100 12/25/16 08:36 - Labs Result Diagrams: 12/25/16 06:00 12/25/16 06:00 Labs: Laboratory Results - last 24 hr 12/25/16 12/25/16 06:00 06:00 WBC 11.6 H RBC 3.95 L Hgb 10.9 L Hct 32.7 L MCV 82.8 MCH 27.7 MCHC 33.4 RDW 15.7 H Plt Count 138 Sodium 140 Potassium 3.9 Chloride 103 Carbon Dioxide 29 Anion Gap 13 BUN 13 Creatinine 0.8 Est GFR ( Amer) > 60 Est GFR (Non-Af Amer) > 60 Random Glucose 109 Calcium 8.8 Assessment & Plan (1) Gait difficulty Status: Acute (2) Status post total left knee replacement Status: Acute (3) Benign prostate hyperplasia Status: Chronic - Assessment and Plan (Free Text) Plan: Cont meds cnt pain meds start PT for gait balance ambulation. check labs.
[2016-12-25] MEDS: oxyCODONE 10 mg ER Tab (oxyCONTIN) PO SCH ×2 (10:10→22:07)
[2016-12-25] MEDS: Pantoprazole 40 mg EC Tab PO SCH (10:11)
[2016-12-25] MEDS: Tiotropium 18 mcg Cap For Inhalation INH SCH (10:12)
[2016-12-25] MEDS ORDERED: Magnesium Hydroxide Susp 30 ml UD PO ONE (10:15)
--- NOTE | 2016-12-25 12:18 | RAD ---
HISTORY: cough COMPARISON: Comparison is made to 08/31/2016 TECHNIQUE: Chest PA and lateral FINDINGS: LUNGS: No evidence of new infiltrate or consolidation in the lungs. Prominent left hilum is again noted. PLEURA: CARDIOVASCULAR: Normal. OSSEOUS STRUCTURES: No significant abnormalities. VISUALIZED UPPER ABDOMEN: Normal. OTHER FINDINGS: None. IMPRESSION: No evidence of new infiltrate or consolidation in the lungs. If clinically warranted further assessment by CT may be obtained.
--- NOTE | 2016-12-25 13:51 | CP.PCM.PN ---
Subjective - Date & Time of Evaluation Date of Evaluation: 12/25/16 Time of Evaluation: 08:30 - Subjective Subjective: S/P LTKR POD#3 Pt seen and examined sitting in chair, comfortable Pt c/o mild left knee, currently well controlled with pain meds Pt c/o constipation Pt denies any SOB, chest pain, N/V/D Objective - Vital Signs/Intake and Output Vital Signs (last 24 hours): Temp Pulse Resp BP Pulse Ox 98.1 F 76 20 104/67 100 12/25/16 08:36 12/25/16 08:36 12/25/16 08:36 12/25/16 08:36 12/25/16 08:36 - Medications Medications: Current Medications Acetaminophen (Tylenol 325mg Tab) 325 mg PO Q4 PRN PRN Reason: pain1-3 Aspirin (Aspirin) 325 mg PO BID [facility] Celecoxib (Celebrex) 200 mg PO Q12 [facility] Last Admin: 12/25/16 10:11 Dose: 200 mg Finasteride (Proscar) 5 mg PO HS [facility] Last Admin: 12/24/16 21:47 Dose: 5 mg Lactulose (Enulose) 20 gm PO DAILY PRN PRN Reason: Constipation Last Admin: 12/25/16 06:01 Dose: 20 gm Oxycodone HCl (Oxycontin Extended Release Tab) 10 mg PO Q12 [facility] Stop: 12/27/16 21:01 Last Admin: 12/25/16 10:10 Dose: 10 mg Oxycodone/Acetaminophen (Percocet 5/325 Mg Tab) 1 tab PO Q4 PRN PRN Reason: pain4-6 Stop: 12/27/16 15:39 Last Admin: 12/25/16 06:00 Dose: 1 tab Pantoprazole Sodium (Protonix Ec Tab) 40 mg PO DAILY [facility] Last Admin: 12/25/16 10:11 Dose: 40 mg Tamsulosin HCl (Flomax) 0.4 mg PO DAILY [facility] Last Admin: 12/25/16 10:11 Dose: 0.4 mg Tiotropium [place] (Spiriva) 18 mcg INH DAILY [facility] Last Admin: 12/25/16 10:12 Dose: 18 mcg - Labs Labs: 12/25/16 06:00 12/25/16 06:00 - Constitutional Appears: Well, No Acute Distress - Respiratory Exam Respiratory Exam: Clear to Ausculation Bilateral, NORMAL BREATHING PATTERN - Cardiovascular Exam Cardiovascular Exam: REGULAR RHYTHM, RRR - Extremities Exam Additional comments: LLE: Knee dressing C/D/I Calves soft and nontender b/l N/V intact distally Distal pulses wnl Assessment and Plan - Assessment and Plan (Free Text) Assessment: 66 yo M s/p LTKR POD#3 Plan: 66 yo M s/p LTKR POD#3 Pain Control DVT ppx PT/OT WBAT LLE Milk of magnesia ordered for constipation Continue current management Discussed with Dr. Hernadez
[2016-12-26] MEDS: oxyCODONE 10 mg ER Tab (oxyCONTIN) PO SCH ×2 (09:18→21:27)
[2016-12-26] MEDS: Pantoprazole 40 mg EC Tab PO SCH (09:19)
[2016-12-26] MEDS: Tiotropium 18 mcg Cap For Inhalation INH SCH (09:19)
[2016-12-26] MEDS: Oxycodone/Acetaminophen 5/325 mg Tab PO PRN (17:28)
[2016-12-27] MEDS: Oxycodone/Acetaminophen 5/325 mg Tab PO PRN ×2 (06:23→16:09)
[2016-12-27] MEDS: Tiotropium 18 mcg Cap For Inhalation INH SCH (09:00)
[2016-12-27] MEDS: oxyCODONE 10 mg ER Tab (oxyCONTIN) PO SCH ×2 (09:00→21:40)
[2016-12-27] MEDS: Pantoprazole 40 mg EC Tab PO SCH (09:01)
--- NOTE | 2016-12-27 09:59 | CP.PCM.PN ---
Subjective - Date & Time of Evaluation Date of Evaluation: 12/26/16 Time of Evaluation: 10:00 - Subjective Subjective: Patient remains well Has no chest pain or SOB Afebrile.Surgical wound is clean. No leg edema N calf tenderness. Objective - Vital Signs/Intake and Output Vital Signs (last 24 hours): Temp Pulse Resp BP Pulse Ox 97.7 F 78 20 123/55 L 90 L 12/27/16 08:16 12/27/16 08:16 12/27/16 08:16 12/27/16 08:16 12/27/16 08:16 - Medications Medications: Current Medications Acetaminophen (Tylenol 325mg Tab) 325 mg PO Q4 PRN PRN Reason: pain1-3 Aspirin (Aspirin) 325 mg PO BID [facility] Last Admin: 12/27/16 09:00 Dose: 325 mg Celecoxib (Celebrex) 200 mg PO Q12 [facility] Last Admin: 12/27/16 09:01 Dose: 200 mg Finasteride (Proscar) 5 mg PO HS [facility] Last Admin: 12/26/16 21:27 Dose: 5 mg Lactulose (Enulose) 20 gm PO DAILY PRN PRN Reason: Constipation Last Admin: 12/25/16 06:01 Dose: 20 gm Oxycodone HCl (Oxycontin Extended Release Tab) 10 mg PO Q12 [facility] Stop: 12/27/16 21:01 Last Admin: 12/27/16 09:00 Dose: 10 mg Oxycodone/Acetaminophen (Percocet 5/325 Mg Tab) 1 tab PO Q4 PRN PRN Reason: pain4-6 Stop: 12/27/16 15:39 Last Admin: 12/27/16 06:23 Dose: 1 tab Pantoprazole Sodium (Protonix Ec Tab) 40 mg PO DAILY [facility] Last Admin: 12/27/16 09:01 Dose: 40 mg Tamsulosin HCl (Flomax) 0.4 mg PO DAILY [facility] Last Admin: 12/27/16 09:01 Dose: 0.4 mg Tiotropium [place] (Spiriva) 18 mcg INH DAILY [facility] Last Admin: 12/27/16 09:00 Dose: 18 mcg - Labs Labs: 12/25/16 06:00 12/25/16 06:00 - Head Exam Head Exam: NORMAL INSPECTION - Eye Exam Eye Exam: Normal appearance - ENT Exam ENT Exam: Mucous Membranes Moist - Respiratory Exam Respiratory Exam: Clear to Ausculation Bilateral - Cardiovascular Exam Cardiovascular Exam: REGULAR RHYTHM - GI/Abdominal Exam GI & Abdominal Exam: Normal Bowel Sounds - Neurological Exam Neurological Exam: Awake, Oriented x3 Assessment and Plan (1) Gait difficulty Status: Acute (2) Status post total left knee replacement Status: Acute (3) Benign prostate hyperplasia Status: Chronic - Assessment and Plan (Free Text) Plan: Cont meds Cont tx Cont pain meds Cont tx Cont PT.
--- NOTE | 2016-12-27 10:00 | CP.PCM.PN ---
Subjective - Date & Time of Evaluation Date of Evaluation: 12/27/16 Time of Evaluation: 09:59 - Subjective Subjective: Patient is doing well. Has no chest pain or SOB. Afebrile. Objective - Vital Signs/Intake and Output Vital Signs (last 24 hours): Temp Pulse Resp BP Pulse Ox 97.7 F 78 20 123/55 L 90 L 12/27/16 08:16 12/27/16 08:16 12/27/16 08:16 12/27/16 08:16 12/27/16 08:16 - Medications Medications: Current Medications Acetaminophen (Tylenol 325mg Tab) 325 mg PO Q4 PRN PRN Reason: pain1-3 Aspirin (Aspirin) 325 mg PO BID [facility] Last Admin: 12/27/16 09:00 Dose: 325 mg Celecoxib (Celebrex) 200 mg PO Q12 [facility] Last Admin: 12/27/16 09:01 Dose: 200 mg Finasteride (Proscar) 5 mg PO HS [facility] Last Admin: 12/26/16 21:27 Dose: 5 mg Lactulose (Enulose) 20 gm PO DAILY PRN PRN Reason: Constipation Last Admin: 12/25/16 06:01 Dose: 20 gm Oxycodone HCl (Oxycontin Extended Release Tab) 10 mg PO Q12 [facility] Stop: 12/27/16 21:01 Last Admin: 12/27/16 09:00 Dose: 10 mg Oxycodone/Acetaminophen (Percocet 5/325 Mg Tab) 1 tab PO Q4 PRN PRN Reason: pain4-6 Stop: 12/27/16 15:39 Last Admin: 12/27/16 06:23 Dose: 1 tab Pantoprazole Sodium (Protonix Ec Tab) 40 mg PO DAILY [facility] Last Admin: 12/27/16 09:01 Dose: 40 mg Tamsulosin HCl (Flomax) 0.4 mg PO DAILY [facility] Last Admin: 12/27/16 09:01 Dose: 0.4 mg Tiotropium [place] (Spiriva) 18 mcg INH DAILY [facility] Last Admin: 12/27/16 09:00 Dose: 18 mcg - Labs Labs: 12/25/16 06:00 12/25/16 06:00 - Head Exam Head Exam: NORMAL INSPECTION - Eye Exam Eye Exam: Normal appearance - ENT Exam ENT Exam: Mucous Membranes Moist - Respiratory Exam Respiratory Exam: Clear to Ausculation Bilateral - Cardiovascular Exam Cardiovascular Exam: REGULAR RHYTHM - GI/Abdominal Exam GI & Abdominal Exam: Normal Bowel Sounds - Neurological Exam Neurological Exam: Awake, Oriented x3 Assessment and Plan (1) Gait difficulty Status: Acute (2) Status post total left knee replacement Status: Acute (3) Benign prostate hyperplasia Status: Chronic - Assessment and Plan (Free Text) Plan: Cont meds Con ttx Cont PT pain meds.
[2016-12-28] MEDS: Oxycodone/Acetaminophen 5/325 mg Tab PO PRN (08:34)
[2016-12-28] MEDS: Tiotropium 18 mcg Cap For Inhalation INH SCH (08:37)
[2016-12-28] MEDS: Pantoprazole 40 mg EC Tab PO SCH (08:37)
[2016-12-28] MEDS: oxyCODONE 10 mg ER Tab (oxyCONTIN) PO SCH ×2 (11:16→21:16)
[2016-12-29] MEDS: Oxycodone/Acetaminophen 5/325 mg Tab PO PRN ×4 (00:26→23:24)
[2016-12-29] MEDS: oxyCODONE 10 mg ER Tab (oxyCONTIN) PO SCH ×2 (09:13→22:04)
[2016-12-29] MEDS: Pantoprazole 40 mg EC Tab PO SCH (09:14)
[2016-12-29] MEDS: Tiotropium 18 mcg Cap For Inhalation INH SCH (09:15)
[2016-12-30] MEDS: Oxycodone/Acetaminophen 5/325 mg Tab PO PRN ×2 (09:27→15:24)
[2016-12-30] MEDS: oxyCODONE 10 mg ER Tab (oxyCONTIN) PO SCH ×2 (09:28→22:01)
[2016-12-30] MEDS: Pantoprazole 40 mg EC Tab PO SCH (09:30)
[2016-12-30] MEDS: Tiotropium 18 mcg Cap For Inhalation INH SCH (09:30)
[2016-12-30] MEDS ORDERED: Oxycodone/Acetaminophen 5/325 mg Tab PO PRN (22:09)
[2016-12-31 08:14] VITALS: BP 127/79; PULSE 63; TEMP 97.4; O2SAT 100
[2016-12-31] MEDS: oxyCODONE 10 mg ER Tab (oxyCONTIN) PO SCH (08:17)
[2016-12-31] MEDS: Pantoprazole 40 mg EC Tab PO SCH (08:18)
[2016-12-31] MEDS: Tiotropium 18 mcg Cap For Inhalation INH SCH (08:19)
--- NOTE | 2016-12-31 09:46 | CP.PCM.PN ---
Subjective - Date & Time of Evaluation Date of Evaluation: 12/28/16 Time of Evaluation: 09:30 - Subjective Subjective: patient is doing better Has no chest pain or SOB Noted decrease swelling on the periwound site Ambulates well with walker. Objective - Vital Signs/Intake and Output Vital Signs (last 24 hours): Temp Pulse Resp BP Pulse Ox 97.4 F L 63 20 127/79 100 12/31/16 08:14 12/31/16 08:14 12/31/16 08:14 12/31/16 08:14 12/31/16 08:14 - Medications Medications: Current Medications Acetaminophen (Tylenol 325mg Tab) 325 mg PO Q4 PRN PRN Reason: pain1-3 Aspirin (Aspirin) 325 mg PO BID [facility] Last Admin: 12/31/16 08:23 Dose: 325 mg Celecoxib (Celebrex) 200 mg PO Q12 [facility] Last Admin: 12/31/16 08:18 Dose: 200 mg Finasteride (Proscar) 5 mg PO HS [facility] Last Admin: 12/30/16 22:01 Dose: 5 mg Lactulose (Enulose) 20 gm PO DAILY PRN PRN Reason: Constipation Last Admin: 12/25/16 06:01 Dose: 20 gm Oxycodone HCl (Oxycontin Extended Release Tab) 10 mg PO Q12 [facility] Stop: 12/31/16 10:54 Last Admin: 12/31/16 08:17 Dose: 10 mg Oxycodone/Acetaminophen (Percocet 5/325 Mg Tab) 1 tab PO Q4 PRN PRN Reason: for pain level 4-7 Stop: 01/02/17 22:10 Last Admin: 12/30/16 23:30 Dose: 1 tab Pantoprazole Sodium (Protonix Ec Tab) 40 mg PO DAILY [facility] Last Admin: 12/31/16 08:18 Dose: 40 mg Tamsulosin HCl (Flomax) 0.4 mg PO DAILY [facility] Last Admin: 12/31/16 08:19 Dose: 0.4 mg Tiotropium [place] (Spiriva) 18 mcg INH DAILY [facility] Last Admin: 12/31/16 08:19 Dose: 18 mcg - Labs Labs: 12/25/16 06:00 12/25/16 06:00 - Head Exam Head Exam: NORMAL INSPECTION - Eye Exam Eye Exam: Normal appearance - ENT Exam ENT Exam: Mucous Membranes Moist - Respiratory Exam Respiratory Exam: Clear to Ausculation Bilateral - Cardiovascular Exam Cardiovascular Exam: REGULAR RHYTHM - GI/Abdominal Exam GI & Abdominal Exam: Normal Bowel Sounds - Neurological Exam Neurological Exam: Awake, Oriented x3 Assessment and Plan (1) Gait difficulty Status: Acute (2) Status post total left knee replacement Status: Acute (3) Benign prostate hyperplasia Status: Chronic - Assessment and Plan (Free Text) Plan: Con tmeds Con ttx Cont PT pain meds.
--- NOTE | 2016-12-31 09:48 | CP.PCM.PN ---
Subjective - Date & Time of Evaluation Date of Evaluation: 12/29/16 Time of Evaluation: 10:00 - Subjective Subjective: Patient is stable walking better with device Has minimal pain and swelling on the op site. ecchymoses are resolving. Objective - Vital Signs/Intake and Output Vital Signs (last 24 hours): Temp Pulse Resp BP Pulse Ox 97.4 F L 63 20 127/79 100 12/31/16 08:14 12/31/16 08:14 12/31/16 08:14 12/31/16 08:14 12/31/16 08:14 - Medications Medications: Current Medications Acetaminophen (Tylenol 325mg Tab) 325 mg PO Q4 PRN PRN Reason: pain1-3 Aspirin (Aspirin) 325 mg PO BID [facility] Last Admin: 12/31/16 08:23 Dose: 325 mg Celecoxib (Celebrex) 200 mg PO Q12 [facility] Last Admin: 12/31/16 08:18 Dose: 200 mg Finasteride (Proscar) 5 mg PO HS [facility] Last Admin: 12/30/16 22:01 Dose: 5 mg Lactulose (Enulose) 20 gm PO DAILY PRN PRN Reason: Constipation Last Admin: 12/25/16 06:01 Dose: 20 gm Oxycodone HCl (Oxycontin Extended Release Tab) 10 mg PO Q12 [facility] Stop: 12/31/16 10:54 Last Admin: 12/31/16 08:17 Dose: 10 mg Oxycodone/Acetaminophen (Percocet 5/325 Mg Tab) 1 tab PO Q4 PRN PRN Reason: for pain level 4-7 Stop: 01/02/17 22:10 Last Admin: 12/30/16 23:30 Dose: 1 tab Pantoprazole Sodium (Protonix Ec Tab) 40 mg PO DAILY [facility] Last Admin: 12/31/16 08:18 Dose: 40 mg Tamsulosin HCl (Flomax) 0.4 mg PO DAILY [facility] Last Admin: 12/31/16 08:19 Dose: 0.4 mg Tiotropium [place] (Spiriva) 18 mcg INH DAILY [facility] Last Admin: 12/31/16 08:19 Dose: 18 mcg - Labs Labs: 12/25/16 06:00 12/25/16 06:00 - Head Exam Head Exam: NORMAL INSPECTION - Eye Exam Eye Exam: Normal appearance - ENT Exam ENT Exam: Mucous Membranes Moist - Respiratory Exam Respiratory Exam: Clear to Ausculation Bilateral - Cardiovascular Exam Cardiovascular Exam: REGULAR RHYTHM - Neurological Exam Neurological Exam: CN II-XII Intact, Normal Gait Assessment and Plan (1) Gait difficulty Status: Acute (2) Status post total left knee replacement Status: Acute (3) Benign prostate hyperplasia Status: Chronic
--- NOTE | 2016-12-31 09:49 | CP.PCM.PN ---
Subjective - Date & Time of Evaluation Date of Evaluation: 12/30/16 Time of Evaluation: 10:00 - Subjective Subjective: Patient is stable has been doing well with PT Has no chest pain or SOB Has minimal swelling around wound. Wound is well healed. Objective - Vital Signs/Intake and Output Vital Signs (last 24 hours): Temp Pulse Resp BP Pulse Ox 97.4 F L 63 20 127/79 100 12/31/16 08:14 12/31/16 08:14 12/31/16 08:14 12/31/16 08:14 12/31/16 08:14 - Medications Medications: Current Medications Acetaminophen (Tylenol 325mg Tab) 325 mg PO Q4 PRN PRN Reason: pain1-3 Aspirin (Aspirin) 325 mg PO BID [facility] Last Admin: 12/31/16 08:23 Dose: 325 mg Celecoxib (Celebrex) 200 mg PO Q12 [facility] Last Admin: 12/31/16 08:18 Dose: 200 mg Finasteride (Proscar) 5 mg PO HS [facility] Last Admin: 12/30/16 22:01 Dose: 5 mg Lactulose (Enulose) 20 gm PO DAILY PRN PRN Reason: Constipation Last Admin: 12/25/16 06:01 Dose: 20 gm Oxycodone HCl (Oxycontin Extended Release Tab) 10 mg PO Q12 [facility] Stop: 12/31/16 10:54 Last Admin: 12/31/16 08:17 Dose: 10 mg Oxycodone/Acetaminophen (Percocet 5/325 Mg Tab) 1 tab PO Q4 PRN PRN Reason: for pain level 4-7 Stop: 01/02/17 22:10 Last Admin: 12/30/16 23:30 Dose: 1 tab Pantoprazole Sodium (Protonix Ec Tab) 40 mg PO DAILY [facility] Last Admin: 12/31/16 08:18 Dose: 40 mg Tamsulosin HCl (Flomax) 0.4 mg PO DAILY [facility] Last Admin: 12/31/16 08:19 Dose: 0.4 mg Tiotropium [place] (Spiriva) 18 mcg INH DAILY [facility] Last Admin: 12/31/16 08:19 Dose: 18 mcg - Labs Labs: 12/25/16 06:00 12/25/16 06:00 - Head Exam Head Exam: NORMAL INSPECTION - Eye Exam Eye Exam: Normal appearance - ENT Exam ENT Exam: Mucous Membranes Moist - Respiratory Exam Respiratory Exam: Clear to Ausculation Bilateral - Cardiovascular Exam Cardiovascular Exam: REGULAR RHYTHM - GI/Abdominal Exam GI & Abdominal Exam: Normal Bowel Sounds - Extremities Exam Additional comments: decreased swelling around wound. - Neurological Exam Neurological Exam: Awake, Oriented x3 Assessment and Plan (1) Gait difficulty Status: Acute (2) Status post total left knee replacement Status: Acute (3) Benign prostate hyperplasia Status: Chronic
--- NOTE | 2016-12-31 09:51 | CP.PCM.DIS ---
Provider - Provider Date of Admission: 12/24/16 15:11 Attending physician: Cesar Tam MD Primary care physician: Scout Burger MD Time Spent in preparation of Discharge (in minutes): 30 Diagnosis - Discharge Diagnosis (1) Gait difficulty Status: Acute (2) Status post total left knee replacement Status: Acute (3) Benign prostate hyperplasia Status: Chronic Hospital Course - Lab Results Lab Results: Most Recent Lab Values WBC 11.6 K/uL (4.8-10.8) H 12/25/16 06:00 RBC 3.95 Mil/uL (4.40-5.90) L 12/25/16 06:00 Hgb 10.9 g/dL (12.0-18.0) L 12/25/16 06:00 Hct 32.7 % (35.0-51.0) L 12/25/16 06:00 MCV 82.8 fl (80.0-94.0) 12/25/16 06:00 MCH 27.7 pg (27.0-31.0) 12/25/16 06:00 MCHC 33.4 g/dL (33.0-37.0) 12/25/16 06:00 RDW 15.7 % (11.5-14.5) H 12/25/16 06:00 Plt Count 138 K/uL (130-400) 12/25/16 06:00 Sodium 140 mmol/l (132-148) 12/25/16 06:00 Potassium 3.9 MMOL/L (3.6-5.0) 12/25/16 06:00 Chloride 103 mmol/L (98-107) 12/25/16 06:00 Carbon Dioxide 29 mmol/L (22-30) 12/25/16 06:00 Anion Gap 13 (10-20) 12/25/16 06:00 BUN 13 mg/dl (9-20) 12/25/16 06:00 Creatinine 0.8 mg/dL (0.8-1.5) 12/25/16 06:00 Est GFR ( Amer) > 60 12/25/16 06:00 Est GFR (Non-Af Amer) > 60 12/25/16 06:00 Random Glucose 109 mg/dL (75-110) 12/25/16 06:00 Calcium 8.8 mg/dL (8.4-10.2) 12/25/16 06:00 - Hospital Course Hospital Course: This is a 66 y/o male admitted for rehab after a TKR left Post op period was unremarkable Has no fever Had minimal swelling of the knee He was started on phys therapy and able o achieve goals of PT He was maintained on Tramadol. Discharge Exam - Head Exam Head Exam: NORMAL INSPECTION - Eye Exam Eye Exam: Normal appearance - Respiratory Exam Respiratory Exam: NORMAL BREATHING PATTERN - Cardiovascular Exam Cardiovascular Exam: REGULAR RHYTHM - GI/Abdominal Exam GI & Abdominal Exam: Normal Bowel Sounds - Neurological Exam Neurological exam: CN II-XII Intact, Oriented x3 - Psychiatric Exam Psychiatric exam: Normal Mood Discharge Plan - Follow Up Plan Condition: GOOD Disposition: HOME/ ROUTINE Additional Instructions: advied follow up with Dr Gooden and PMD. Rx Tramadol given. Referrals: Scout Burger [Primary Care Provider] -
== END 2016-12-31 14:20 | disposition home or self-care (01) | DRG 561 ==
LOC: H.TCU 15:11
PROVIDERS: ADMIT Family Medicine; ATTEND Family Medicine
PROC: F07Z9FZ Gait Training/Functional Ambulation Treatment using Assistive, Adaptive, Supportive or Protective Equipment (ICD-10-PCS; principal; 2016-12-24)
PROC: F08Z4FZ Home Management Treatment using Assistive, Adaptive, Supportive or Protective Equipment (ICD-10-PCS; 2016-12-24)
PROC: F07L6FZ Therapeutic Exercise Treatment of Musculoskeletal System - Lower Back / Lower Extremity using Assistive, Adaptive, Supportive or Protective Equipment (ICD-10-PCS; 2016-12-25)
DX: Z47.1 Aftercare following joint replacement surgery (principal); R26.89 Other abnormalities of gait and mobility; Z96.653 Presence of artificial knee joint, bilateral; J44.9 Chronic obstructive pulmonary disease, unspecified; K59.00 Constipation, unspecified; M17.9 Osteoarthritis of knee, unspecified; N40.0 Benign prostatic hyperplasia without lower urinary tract symptoms; Z87.891 Personal history of nicotine dependence

== ENCOUNTER 2017-06-25 08:36 | Emergency (ER) | payer MEDICARE, SELFPAY ==
[2017-06-25 08:36] VITALS: BMI 29.5
[2017-06-25 08:46] VITALS: BP 131/95; PULSE 56; RESP 20; TEMP 97.2; O2SAT 96
[2017-06-25] MEDS ORDERED: Albuterol-Ipratrop 3 mg / 0.5 (3 ml) UD INH STA ×2 (09:39→12:17)
[2017-06-25 09:59] LABS: BASO # 0.1 K/uL (0.0-0.2); BASO % 0.6 % (0.0-2.0); EOS # 0.1 K/uL (0.0-0.7); EOS % 1.1 % (0.0-4.0); HEMOGLOBIN 13.9 g/dL (12.0-18.0); LYMPH # 1.4 K/uL (1.0-4.3); LYMPH % 15.2 % (20.0-40.0); MEAN CELL VOLUME 82.4 fl (80.0-94.0); MEAN CORPUSCULAR HEMOGLOBIN 26.7 pg (27.0-31.0); MEAN CORPUSCULAR HGB CONC 32.4 g/dL (33.0-37.0); MEAN PLATELET VOLUME 9.5 fl (7.2-11.7); MONO # 0.4 K/uL (0.0-0.8); MONO % 4.5 % (0.0-10.0); NEUT # 7.4 K/uL (1.8-7.0); NEUT % 78.6 % (50.0-75.0); NRBC % 0.1 % (0.0-0.0); RBC 5.21 Mil/uL (4.40-5.90); RED CELL DISTRIBUTION WIDTH 17.3 % (11.5-14.5); WHITE BLOOD COUNT 9.4 K/uL (4.8-10.8)
--- NOTE | 2017-06-25 10:08 | ED PDOC ---
HPI: SOB/CHF/COPD Time Seen by Provider: 06/25/17 09:31 Chief Complaint (Nursing): Flu-like Symptoms Chief Complaint (Provider): COugh History Per: Patient History/Exam Limitations: no limitations Onset/Duration Of Symptoms: Days (5) Current Symptoms Are (Timing): Still Present Additional Complaint(s): Pt states he was was diagnosed the flu on 06/21/17, given Rx for Tamiflu, Levaquin and Prednisone, compliant with meds but continues to have nonproductive cough and SOB. Denies fever, CP, palpitations. Past Medical History Reviewed: Nursing Documentation, Vital Signs Vital Signs: Last Vital Signs Temp 97.2 F L 06/25/17 08:41 Pulse 56 L 06/25/17 08:41 Resp 20 06/25/17 08:41 BP 131/95 H 06/25/17 08:41 Pulse Ox 96 06/25/17 10:10 - Medical History PMH: Arthritis (KNEES AND LEGS), Asthma ( CHILD), COPD, Post Traumatic Stress Disorder Denies: HIV, Chronic Kidney Disease - Family History Family History: States: Unknown Family Hx - Social History Current smoker - smoking cessation education provided: No Alcohol: None - Home Medications Home Medications: Ambulatory Orders Medication Instructions Recorded Tamsulosin [Flomax] 0.4 mg PO DAILY 12/22/16 Finasteride [Proscar] 5 mg PO HS tab 12/24/16 Lactulose [Enulose] 20 gm PO DAILY PRN 12/24/16 Pantoprazole [Protonix EC Tab] 40 mg PO DAILY ect 12/24/16 Tiotropium [Spiriva] 18 mcg INH DAILY cap 12/24/16 Aspirin 325 mg PO DAILY #30 tab 12/31/16 Albuterol/Ipratropium [Duoneb 3 1 ea IH Q6H PRN #30 neb 06/25/17 MG/3 Ml-0.5 MG/3 Ml 3 Ml] Nebulizer [Compact Compressor 1 dev XX PRN PRN #1 dev 06/25/17 Nebulizer] - Allergies Allergies/Adverse Reactions: Allergies Allergy/AdvReac Type Severity Reaction Status Date / Time No Known Allergies Allergy Verified 12/24/16 15:22 Review of Systems Constitutional: Negative for: Fever, Chills Cardiovascular: Negative for: Chest Pain, Palpitations Respiratory: Positive for: Cough, Shortness of Breath, SOB with Exertion. Negative for: Hemoptysis, Pleuritic Pain, Sputum Gastrointestinal: Negative for: Nausea, Vomiting, Abdominal Pain, Diarrhea Genitourinary Male: Negative for: Dysuria, Hematuria Musculoskeletal: Negative for: Back Pain Skin: Negative for: Rash, Lesions Neurological: Negative for: Weakness, Numbness, Headache, Dizziness Physical Exam - Reviewed Nursing Documentation Reviewed: Yes Vital Signs Reviewed: Yes - Physical Exam Appears: Positive for: Well, No Acute Distress (Speaking full sentences) Skin: Positive for: Normal Color, Warm, Dry Eye Exam: Positive for: Normal appearance, EOMI, PERRL Neck: Positive for: Normal, Painless ROM, Supple Cardiovascular/Chest: Positive for: Regular Rate, Rhythm Respiratory: Positive for: Wheezing (Bilateral). Negative for: Decreased Breath Sounds, Accessory Muscle Use, Rales, Rhonchi, Respiratory Distress Extremity: Positive for: Normal ROM Neurologic/Psych: Positive for: Alert, Oriented - Laboratory Results Result Diagrams: 06/25/17 09:46 06/25/17 09:46 - ECG O2 Sat by Pulse Oximetry: 96 Medical Decision Making Medical Decision Makin yo male with COPD and nonproductive cough. - labs - EKG - CXR - Duonebs Accession No. : [id number] Patient Name / ID : PHILIPPE SAWYER / [id number] Exam Date : 06/25/2017 09:36:21 ( Approved ) Study Comment : Sex / Age : M / 66Y Creator : Keon Torre MD Dictator : Keon Torre MD Utility Sales And Service Manager : [employer] Acupuncturist : Keon Torre MD Approver2 : Report Date : 06/25/2017 11:44:16 My Comment : HISTORY: Cough COMPARISON: Chest radiograph dated 12/25/2016. TECHNIQUE: Chest PA and lateral FINDINGS: LUNGS: No active pulmonary disease. PLEURA: No significant pleural effusion identified. No pneumothorax apparent. CARDIOVASCULAR: Normal. OSSEOUS STRUCTURES: Unchanged. VISUALIZED UPPER ABDOMEN: Normal. OTHER FINDINGS: None. IMPRESSION: No active disease. Accession No. : [id number] Patient Name / ID : PHILIPPE SAWYER / [id number] Exam Date : 06/25/2017 10:32:46 ( Approved ) Study Comment : Sex / Age : M / 66Y Creator : Keon Torre MD Dictator : Keon Torre MD Utility Sales And Service Manager : Auricular Acupuncturist : Keon Torre MD Approver2 : Report Date : 06/25/2017 12:12:01 My Comment : PROCEDURE: CT Chest with contrast (Pulmonary Angiogram) HISTORY: SOB COMPARISON: None available. TECHNIQUE: Axial computed tomography images were obtained of the chest in the pulmonary arterial phase of enhancement. Coronal and sagittal reformatted images were created and reviewed. Intravenous contrast dose: 99 mL Visipaque 320 Radiation dose: Total exam DLP = 497.9 mGy-cm. This CT exam was performed using one or more of the following dose reduction techniques: Automated exposure control, adjustment of the mA and/or kV according to patient size, and/or use of iterative reconstruction technique. FINDINGS: PULMONARY ARTERIES: Unremarkable. No pulmonary embolism. AORTA: No acute findings. No thoracic aortic aneurysm. LUNGS: Centrilobular emphysema. No nodule, mass or pulmonary consolidation. PLEURAL SPACES: Unremarkable. No effusion or pneumothorax. HEART: Cardiomegaly. No significant pericardial effusion. LYMPH NODES: No lymphadenopathy. BONES, CHEST WALL: Degenerative changes. No fracture or destructive lesion OTHER FINDINGS: Enlarged left thyroid with posterior hypo attenuating structure extending substernally. Small hiatal hernia. Bilateral renal cysts. IMPRESSION: Unremarkable CT pulmonary angiogram. No pulmonary embolus. Posterior left thyroid lesion. Thyroid ultrasound is recommended for further evaluation. Copy of CT report given to patient for outpatient follow-up re: thyroid. Disposition - Clinical Impression Clinical Impression: COPD (chronic obstructive pulmonary disease) - Disposition Disposition Time: 13:06 Condition: IMPROVED Additional Instructions: FOLLOW-UP WITH PMD WITHIN 2 DAYS FOR REEVALUATION. Prescriptions: Albuterol/Ipratropium [Duoneb 3 MG/3 Ml-0.5 MG/3 Ml 3 Ml] 1 ea IH Q6H PRN #30 neb PRN Reason: Shortness Of Breath Nebulizer [Compact Compressor Nebulizer] 1 dev XX PRN PRN #1 dev PRN Reason: Shortness Of Breath Instructions: COPD (Chronic Obstructive Pulmonary Disease) (ED) Forms: [employer] ([place])
[2017-06-25 10:09] LABS: ALB/GLOB RATIO 1.4 (1.0-2.1); ALBUMIN 4.5 g/dL (3.5-5.0); ALT/SGPT 34 U/L (21-72); AST/SGOT 24 U/L (17-59); BLOOD UREA NITROGEN 25 mg/dl (9-20); CALCIUM 9.1 mg/dL (8.4-10.2); GFR AFRICAN-AMERICAN > 60; GFR NON-AFRICAN AMERICAN > 60
[2017-06-25 10:10] LABS: INR 1.1 (0.9-1.2); PARTIAL THROMBOPLASTIN TIME 29.6 Seconds (25.6-37.1); PROTHROMBIN TIME 12.7 Seconds (9.8-13.1)
[2017-06-25] MEDS ORDERED: Albuterol-Ipratrop 3 mg / 0.5 (3 ml) UD ONE (10:18)
[2017-06-25] MEDS ORDERED: Sodium Chloride 0.9% 50 ML IV ONE (10:32)
[2017-06-25] MEDS ORDERED: Iodixanol 320 MG/ML 100 ML BOTTLE IV ONE (10:32)
--- NOTE | 2017-06-25 11:45 | RAD ---
HISTORY: Cough COMPARISON: Chest radiograph dated 12/25/2016. TECHNIQUE: Chest PA and lateral FINDINGS: LUNGS: No active pulmonary disease. PLEURA: No significant pleural effusion identified. No pneumothorax apparent. CARDIOVASCULAR: Normal. OSSEOUS STRUCTURES: Unchanged. VISUALIZED UPPER ABDOMEN: Normal. OTHER FINDINGS: None. IMPRESSION: No active disease.
--- NOTE | 2017-06-25 12:13 | CT ---
PROCEDURE: CT Chest with contrast (Pulmonary Angiogram) HISTORY: SOB COMPARISON: None available. TECHNIQUE: Axial computed tomography images were obtained of the chest in the pulmonary arterial phase of enhancement. Coronal and sagittal reformatted images were created and reviewed. Intravenous contrast dose: 99 mL Visipaque 320 Radiation dose: Total exam DLP = 497.9 mGy-cm. This CT exam was performed using one or more of the following dose reduction techniques: Automated exposure control, adjustment of the mA and/or kV according to patient size, and/or use of iterative reconstruction technique. FINDINGS: PULMONARY ARTERIES: Unremarkable. No pulmonary embolism. AORTA: No acute findings. No thoracic aortic aneurysm. LUNGS: Centrilobular emphysema. No nodule, mass or pulmonary consolidation. PLEURAL SPACES: Unremarkable. No effusion or pneumothorax. HEART: Cardiomegaly. No significant pericardial effusion. LYMPH NODES: No lymphadenopathy. BONES, CHEST WALL: Degenerative changes. No fracture or destructive lesion OTHER FINDINGS: Enlarged left thyroid with posterior hypo attenuating structure extending substernally. Small hiatal hernia. Bilateral renal cysts. IMPRESSION: Unremarkable CT pulmonary angiogram. No pulmonary embolus. Posterior left thyroid lesion. Thyroid ultrasound is recommended for further evaluation. Findings conveyed to Dr. Houston by Dr. Pace at 12:10 p.m. on 06/25/2017.
--- NOTE | 2017-06-26 10:28 | CARD ---
APPROVED REPORT EKG Measurement Heart [id number] <Conclusion> Sinus bradycardia Right bundle branch block Minimal voltage criteria for LVH, may be normal variant Abnormal ECG
== END 2017-06-25 13:20 | disposition home or self-care (01) ==
LOC: H.ER 08:36
DX: J44.9 Chronic obstructive pulmonary disease, unspecified (principal); Z79.82 Long term (current) use of aspirin
CPT/HCPCS: 71046; 71275; 80053; 85025; 85378; 85610; 85730; 87804; 93005; 94150; 94640; 96374; 99283; J2930; Q9967

== ENCOUNTER 2017-07-23 15:19 | Emergency (ER) | payer MEDICARE, SELFPAY ==
[2017-07-23 15:19] VITALS: BMI 29.5
[2017-07-23 15:33] VITALS: BP 111/67; PULSE 84; RESP 16; TEMP 97.2; O2SAT 96
--- NOTE | 2017-07-23 15:45 | ED PDOC ---
HPI: Abdomen <Tia Spann - Last Filed: 07/23/17 22:50> <Jorge Henderson - Last Filed: 07/24/17 19:32> Chief Complaint (Nursing): Abdominal Pain Additional Complaint(s): 66yo M with PMHx COPD c/o abd pain. RUQ abd pain, intermittent, sharp, x2 day, no radiation, a/w black BM (pepto bottle taken prior to BM), denies dysuria/ hematuria/weakness/SOB. PCP Dr. Burger (Tia Spann) Supervising Attending Note - Attestation: I have personally seen and examined this patient.: Yes I have fully participated in the care of the patient.: Yes I have reviewed all pertinent clinical information: Yes <Jorge Henderson - Last Filed: 07/24/17 19:32> Past Medical History Reviewed: Historical Data, Nursing Documentation, Vital Signs - Medical History PMH: Arthritis (KNEES AND LEGS), Asthma ( CHILD), COPD, Post Traumatic Stress Disorder Denies: HIV, Chronic Kidney Disease - Family History Family History: States: Unknown Family Hx - Social History Current smoker - smoking cessation education provided: No Alcohol: None Drugs: Denies <Tia Spann - Last Filed: 07/23/17 22:50> <Jorge Henderson - Last Filed: 07/24/17 19:32> Vital Signs: Last Vital Signs Temp 97.2 F L 07/23/17 15:27 Pulse 84 07/23/17 15:27 Resp 16 07/23/17 15:27 BP 111/67 07/23/17 15:27 Pulse Ox 96 07/23/17 22:51 - Home Medications Home Medications: Ambulatory Orders Medication Instructions Recorded Tamsulosin [Flomax] 0.4 mg PO DAILY 12/22/16 Finasteride [Proscar] 5 mg PO HS tab 12/24/16 Lactulose [Enulose] 20 gm PO DAILY PRN 12/24/16 Pantoprazole [Protonix EC Tab] 40 mg PO DAILY ect 12/24/16 Tiotropium [Spiriva] 18 mcg INH DAILY cap 12/24/16 Aspirin 325 mg PO DAILY #30 tab 12/31/16 Albuterol/Ipratropium [Duoneb 3 1 ea IH Q6H PRN #30 neb 06/25/17 MG/3 Ml-0.5 MG/3 Ml 3 Ml] Nebulizer [Compact Compressor 1 dev XX PRN PRN #1 dev 06/25/17 Nebulizer] Dicyclomine [Bentyl] 20 mg PO BID #30 tab 07/23/17 - Allergies Allergies/Adverse Reactions: Allergies Allergy/AdvReac Type Severity Reaction Status Date / Time No Known Allergies Allergy Verified 12/24/16 15:22 Review of Systems ROS Statement: Except As Marked, All Systems Reviewed And Found Negative Gastrointestinal: Positive for: Abdominal Pain, Melena <Tia Spann - Last Filed: 07/23/17 22:50> Physical Exam - Reviewed Nursing Documentation Reviewed: Yes Vital Signs Reviewed: Yes - Physical Exam Appears: Positive for: Well, Non-toxic Head Exam: Positive for: ATRAUMATIC, NORMAL INSPECTION Skin: Positive for: Warm, Dry Eye Exam: Positive for: Normal appearance Neck: Positive for: Normal, Painless ROM, Supple Cardiovascular/Chest: Positive for: Regular Rate, Rhythm. Negative for: Chest Non Tender Respiratory: Positive for: Normal Breath Sounds. Negative for: Decreased Breath Sounds Gastrointestinal/Abdominal: Positive for: Bowel Sounds, Soft. Negative for: Mass, Distended, Guarding Back: Positive for: Normal Inspection. Negative for: L CVA Tenderness, R CVA Tenderness Rectal: Positive for: Rectal Tone Is: (intact) Extremity: Positive for: Normal ROM Neurologic/Psych: Positive for: Alert, Oriented <Tia Spann - Last Filed: 07/23/17 22:50> - Laboratory Results Result Diagrams: 07/23/17 16:23 07/23/17 16:23 - ECG O2 Sat by Pulse Oximetry: 96 <Tia - Last Filed: 07/23/17 22:50> - Laboratory Results Result Diagrams: 07/23/17 16:23 07/23/17 16:23 <Jorge Henderson - Last Filed: 07/24/17 19:32> Medical Decision Making <Tia - Last Filed: 07/23/17 22:50> <Jorge Henderson - Last Filed: 07/24/17 19:32> Medical Decision Makin DDx PUD, GI bleed, cholecystitis CBC, CMP, FOBT, lipase, T&S pepcid 40 IV x1 urine dip US abd reassessment 1750 labs unremarkable US abd showing hepatomegaly CT abd/pelvis w IV cont [address] abd/pelvis read pending vrad 2229 CT abd/pelvis, vrad: small hiatal hernia, diverticulosis d/c home, FU PCP (Tia Spann) Disposition - Disposition Disposition Time: 22:51 <Tia Spann - Last Filed: 07/23/17 22:50> <Jorge Henderson - Last Filed: 07/24/17 19:32> - Clinical Impression Clinical Impression: Hiatal hernia, Diverticulosis - Disposition Referrals: Scout Burger [Family Provider] - Condition: IMPROVED Prescriptions: Dicyclomine [Bentyl] 20 mg PO BID #30 tab Instructions: Hiatal Hernia, Diverticulosis Forms: [employer] ([place])
[2017-07-23] MEDS ORDERED: Sodium Chloride 0.9% 1,000 ML IV STA (15:53)
[2017-07-23 16:36] LABS: BASO # 0.1 K/uL (0.0-0.2); EOS # 0.1 K/uL (0.0-0.7); EOS % 1.7 % (0.0-4.0); LYMPH # 1.3 K/uL (1.0-4.3); LYMPH % 14.7 % (20.0-40.0); MEAN CORPUSCULAR HGB CONC 33.4 g/dL (33.0-37.0); MEAN PLATELET VOLUME 9.9 fl (7.2-11.7); MONO # 1.1 K/uL (0.0-0.8); MONO % 12.5 % (0.0-10.0); NEUT # 6.3 K/uL (1.8-7.0); NEUT % 70.1 % (50.0-75.0); NRBC % 0.2 % (0.0-0.0); RBC 5.34 Mil/uL (4.40-5.90); RED CELL DISTRIBUTION WIDTH 17.2 % (11.5-14.5); WHITE BLOOD COUNT 8.9 K/uL (4.8-10.8)
[2017-07-23 16:46] LABS: ALB/GLOB RATIO 1.3 (1.0-2.1); ALBUMIN 4.3 g/dL (3.5-5.0); ALT/SGPT 40 U/L (21-72); AST/SGOT 31 U/L (17-59); BLOOD UREA NITROGEN 20 mg/dl (9-20); GFR AFRICAN-AMERICAN > 60; GFR NON-AFRICAN AMERICAN > 60; LIPASE 131 U/L (23-300)
[2017-07-23 16:50] LABS: INR 1.2 (0.9-1.2); PARTIAL THROMBOPLASTIN TIME 35.2 Seconds (25.6-37.1); PROTHROMBIN TIME 13.2 Seconds (9.8-13.1)
[2017-07-23 17:19] LABS: SQUAMOUS EPITHIAL < 1 /hpf (0-5); URINE BILIRUBIN NEGATIVE (NEGATIVE); URINE BLOOD NEGATIVE (NEGATIVE); URINE CLARITY CLEAR (Clear); URINE COLOR YELLOW (YELLOW); URINE GLUCOSE (UA) NEG (Normal); URINE LEUKOCYTE ESTERASE NEG Leu/uL (Negative); URINE PROTEIN 30 mg/dL (NEGATIVE); URINE UROBILINOGEN 0.2-1.0 mg/dL (0.2-1.0)
--- NOTE | 2017-07-23 17:33 | US ---
HISTORY: RUQ and flank pain COMPARISON: None available. TECHNIQUE: Sonographic evaluation of the abdomen. FINDINGS: LIVER: Measures 20.0 cm in sagittal dimension and appears unremarkable. No focal hepatic mass identified. The main portal vein appears patent with normal directional flow. No intrahepatic bile duct dilatation. GALLBLADDER: No gallstones. No gallbladder wall thickening. Negative sonographic Sarmiento's sign as assessed by the computer forensic specialist. COMMON BILE DUCT: Measures 2 mm. PANCREAS: Not well visualized. RIGHT KIDNEY: Measures 10.8 x 5.0 x 5.1cm. No obstructing calculus or hydronephrosis identified. 4.0 x 3.0 x 2.9 cm right renal cyst. LEFT KIDNEY: Measures 12.1 x 6.2 x 4.4cm. No obstructing calculus or hydronephrosis identified. 1.6 x 1.6 x 1.8 cm left renal cyst. SPLEEN: Measures approximately 12.8 cm. AORTA: Limited views appear unremarkable. IVC: Limited views appear unremarkable. OTHER FINDINGS: None. IMPRESSION: Hepatomegaly. Bilateral renal cysts measuring up to 4 cm on the right.
[2017-07-23] MEDS ORDERED: Iohexol 300 100 ML IJ ONE (19:31)
[2017-07-23] MEDS ORDERED: Sodium Chloride 0.9% 100 ML ONE (19:32)
--- NOTE | 2017-07-24 07:31 | CT ---
PROCEDURE: CT Abdomen and Pelvis with contrast HISTORY: R sided abd pain COMPARISON: None. TECHNIQUE: Contrast dose: 100 CC OF OMNIPAQUE 300 Radiation dose: Total exam DLP = mGy-cm. This CT exam was performed using one or more of the following dose reduction techniques: Automated exposure control, adjustment of the mA and/or kV according to patient size, and/or use of iterative reconstruction technique. FINDINGS: LOWER THORAX: BIBASILAR FIBROTIC CHANGE. SMALL HIATAL HERNIA. LIVER: Unremarkable. No gross lesion or ductal dilatation. GALLBLADDER AND BILE DUCTS: Unremarkable. PANCREAS: Unremarkable. No gross lesion or ductal dilatation. SPLEEN: Unremarkable. ADRENALS: Unremarkable. No mass. KIDNEYS AND URETERS: BILATERAL RENAL CYSTS. VASCULATURE: Unremarkable. No aortic aneurysm. BOWEL: MILD COLONIC DIVERTICULOSIS. APPENDIX: Normal appendix. PERITONEUM: Unremarkable. No free fluid. No free air. LYMPH NODES: Unremarkable. No enlarged lymph nodes. BLADDER: Unremarkable. REPRODUCTIVE: Unremarkable. BONES: No acute fracture. OTHER FINDINGS: None. IMPRESSION: NO ACUTE PATHOLOGY.
--- NOTE | 2017-07-24 12:20 | CARD ---
APPROVED REPORT EKG Measurement Heart [id number] <Conclusion> Sinus rhythm with occasional premature ventricular complexes and premature atrial complexes Right bundle branch block Abnormal ECG
== END 2017-07-23 22:25 | disposition home or self-care (01) ==
LOC: H.ER 15:19
DX: K44.9 Diaphragmatic hernia without obstruction or gangrene (principal); K57.90 Diverticulosis of intestine, part unspecified, without perforation or abscess without bleeding; I49.1 Atrial premature depolarization; J45.909 Unspecified asthma, uncomplicated; N28.1 Cyst of kidney, acquired; Z79.82 Long term (current) use of aspirin; I49.3 Ventricular premature depolarization
CPT/HCPCS: 74177; 76700; 80053; 81003; 83690; 85025; 85610; 85730; 86850; 86900; 93005; 96361; 96374; 99282; G0328; J7040; Q9967

== ENCOUNTER 2017-11-24 10:44 | Day surgery (SDC) | payer MEDICARE ==
[2017-11-24 11:23] VITALS: BMI 26.4
[2017-11-24 11:24] VITALS: BP 141/89; PULSE 66; RESP 141; TEMP 98; O2SAT 93
== END 2017-11-24 12:30 | disposition home or self-care (01) ==
LOC: H.OPSURG 10:44
PROVIDERS: ATTEND Family Medicine
DX: Z02.89 Encounter for other administrative examinations (principal)

== ENCOUNTER 2017-12-06 09:43 | Day surgery (SDC) | payer MEDICARE ==
[2017-12-06 09:57] VITALS: BMI 32.5
[2017-12-06] MEDS ORDERED: Lidocaine Hydrochloride 5 ML INJ ONE (12:00)
--- NOTE | 2017-12-06 12:15 | CP.SDSHP ---
Same Day Surgery H & P - History Proposed Procedure: US guided FNA of left thyroid nodules Pre-Op Diagnosis: left thyroid nodules - Allergies Allergies: Allergies No Known Allergies Allergy (Verified 11/24/17 11:18) - Physical Exam Vital Signs: Vital Signs 12/06/17 10:22 Temperature 98 F Pulse Rate 61 Respiratory 20 Rate Blood Pressure 143/92 H O2 Sat by Pulse 92 L Oximetry - Impression Impression: Pt with complex left thyroid nodules. Plan US guided FNA left thyroid nodules. Pt. Evaluated Today:Candidate for Anesthesia & Procedure: No - Date & Time Date: 12/06/17 Time: 12:00 Short Stay Discharge - Short Stay Discharge Admitting Diagnosis/Reason for Visit: E04.1 Disposition: HOME/ ROUTINE Referrals: Scout Burger [Primary Care Provider] -
--- NOTE | 2017-12-06 12:16 | PCM.SURG1 ---
Surgeon's Initial Post Op Note - Surgeon's Notes Surgeon: Goran Kelly MD Turpentiner: NONE Type of Anesthesia: Local Pre-Operative Diagnosis: left thyroid nodules Operative Findings: US showed complex left midpole and lower pole thyroid nodules Post-Operative Diagnosis: left thyroid nodules Operation Performed: US guided FNA of left thyroid nodules Specimen/Specimens Removed: 25 g FNA x 5 passes per nodule Estimated Blood Loss: EBL {In ML}: 1 Blood Products Given: N/A Drains Used: No Drains Post-Op Condition: Good Date of Surgery/Procedure: 12/06/17 Time of Surgery/Procedure: 12:15
[2017-12-06 12:22] VITALS: TEMP 97.8
[2017-12-06 12:44] VITALS: BP 146/93; PULSE 55; RESP 20; O2SAT 96
--- NOTE | 2017-12-07 14:26 | VASCULAR ---
PROCEDURE: Date of Procedure: 12/06/2017 PROCEDURE: 1. Ultrasound guided FNA of left thyroid nodules 2. Ultrasound guidance for FNA, [id number] Medications: 3cc 1% Lidocaine HISTORY: Enlarged left thyroid nodule. TECHNIQUE: Following informed consent and procedure time-out, a limited ultrasound patient's neck confirmed the presence multiple thyroid nodules within the left thyroid gland. A large 3 centimeter nodules present the lower pole and a 2 centimeter nodules present within the midpole of the left thyroid lobe. Both nodules a complex and predominantly solid. After the patient's neck was prepped and draped in the usual sterile fashion, the skin was anesthetized with 1% lidocaine. Ultrasound-guided fine needle aspiration was then performed of the midpole left thyroid nodule. A total of 5 passes were made into the nodule with 25 gauge needle under ultrasound guidance. Ultrasound-guided FNA was then performed of the lower pole left thyroid nodule. Five passes were made into the nodule with 25 gauge needle. The FNA specimen was sent for routine pathology and genetics. Post biopsy ultrasound showed no hematoma. IMPRESSION: Ultrasound-guided FNA of the largest midpole and lower pole left thyroid nodules.
== END 2017-12-06 13:10 | disposition home or self-care (01) ==
LOC: H.OPSURG 09:43
PROVIDERS: ATTEND Family Medicine
DX: E04.1 Nontoxic single thyroid nodule (principal)